=== PATIENT | male | born 1940 | race Hispanic/Latino ===

== ENCOUNTER 2016-08-31 13:59 | Inpatient (IN) | payer MEDICARE ==
[2016-08-31 14:12] VITALS: BMI 21.4
--- NOTE | 2016-08-31 15:24 | C.PDOC ---
History Of Present Illness 76 y/o male sent to ED by moose hunter Elvi for admission to [facility]'s service for diabetic left foot ulcer. Pt denies recent fever or trauma. No other complaints. Chief Complaint (Nursing): Abnormal Skin Integrity History Per: Patient History/Exam Limitations: no limitations Onset/Duration Of Symptoms: Days Current Symptoms Are (Timing): Still Present Severity: Moderate Recent travel outside of the [place]: No Past Medical History Reviewed: Historical Data, Nursing Documentation, Vital Signs Vital Signs: Last Vital Signs Temp 98.8 F 09/02/16 23:38 Pulse 81 09/02/16 23:38 Resp 20 09/02/16 23:38 BP 119/61 09/02/16 23:38 Pulse Ox 97 09/02/16 23:38 - Medical History PMH: Alzheimer's Disease, Atrial Fibrillation, Cardia Arrhythmia (A.FIB), Dementia, Depression, Diabetes, HTN, Hypothyroidism, Pneumonia (2011) Surgical History: Cholecystectomy, Coronary Stent - [facility] Procedures DEBRID OPN FX-FINGER (11/10/00) DETACHMENT AT LEFT 2ND TOE, COMPLETE, OPEN APPROACH (01/13/16) DILATE OF L PERONEAL ART WITH DRUG-ELUT INTRA, PERC APPROACH (01/07/16) DILATION OF L FEM ART USING DRUG BLLN, PERC APPROACH (01/07/16) DILATION OF L POPL ART USING DRUG BLLN, PERC APPROACH (01/07/16) EXTIRPATION OF MATTER FROM L FEM ART, BIFURC, PERC APPROACH (01/07/16) EXTIRPATION OF MATTER FROM L PERONEAL ART, PERC APPROACH (01/07/16) EXTIRPATION OF MATTER FROM L POPL ART, PERC APPROACH (01/07/16) NAIL REMOVAL (11/10/00) OPEN RED-INT FIX FINGER (11/10/00) OTHER SKIN & SUBQ I D (11/10/00) TETANUS TOXOID ADMINIST (11/09/00) Family History: States: Unknown Family Hx - Social History Hx Alcohol Use: No Hx Substance Use: No - Immunization History Hx Tetanus Toxoid Vaccination: No Hx Influenza Vaccination: No Hx Pneumococcal Vaccination: No Review Of Systems Except As Marked, All Systems Reviewed And Found Negative. Constitutional: Negative for: Fever, Chills Musculoskeletal: Positive for: Other (left foot ulcer) Physical Exam - Physical Exam Appears: Non-toxic, No Acute Distress Skin: Warm, Dry, No Rash Head: Atraumatic, Normacephalic Chest: Symmetrical Cardiovascular: Rhythm Regular, No Murmur Respiratory: Normal Breath Sounds, No Rales, No Rhonchi, No Wheezing Gastrointestinal/Abdominal: Normal Exam, Soft, No Tenderness Extremity: Normal ROM, No Deformity, Other (Left foot: new bandage applied (by Dr Boles) WELFARE ELIGIBILITY WORKER, (+) edema and swelling, (+) erythema. Amputation noted to left toe. Minimal left posterior tibial pulse.) Neurological/Psych: Oriented x3, Normal Speech ED Course And Treatment - Laboratory Results Result Diagrams: 09/02/16 07:41 09/02/16 07:41 O2 Sat by Pulse Oximetry: 97 (room air) Pulse Ox Interpretation: Normal Progress Note: SPoke to Dr Soto, will admit to his service, consults put in, abx to be started by medicine team. Medical Decision Making Medical Decision Making: Plan: * labs * XR left foot * consults Disposition - Disposition Disposition: HOSPITALIZED Disposition Time: 15:00 Condition: STABLE - Clinical Impression Clinical Impression: Foot ulcer - Scribe Statement The provider has reviewed the documentation as recorded by the Dave Whittaker Provider Attestation: All medical record entries made by the Dave were at my direction and personally dictated by me. I have reviewed the chart and agree that the record accurately reflects my personal performance of the history, physical exam, medical decision making, and the department course for this patient. I have also personally directed, reviewed, and agree with the discharge instructions and disposition.
[2016-08-31 15:39] LABS: BASO # 0.1 K/uL (0.0-0.2); BASO % 0.7 % (0.0-2.0); EOS # 0.2 K/uL (0.0-0.7); EOS % 2.2 % (0.0-4.0); HEMATOCRIT 39.2 % (35.0-51.0); LYMPH # 1.5 K/uL (1.0-4.3); MEAN CELL VOLUME 86.8 fL (80.0-94.0); MEAN CORPUSCULAR HEMOGLOBIN 27.7 pg (27.0-31.0); MONO # 1.4 K/uL (0.0-0.8); MONO % 15.3 % (0.0-10.0); NRBC % 0.1 % (0.0-2.0); RED CELL DISTRIBUTION WIDTH 14.1 % (11.5-14.5); WHITE BLOOD COUNT 8.9 K/uL (4.8-10.8)
[2016-08-31 16:00] LABS: CHLORIDE 100 mmol/L (98-107); POTASSIUM 3.8 mmol/L (3.6-5.2); SODIUM 137 mmol/L (132-148)
[2016-08-31 16:02] LABS: BILIRUBIN,TOTAL 1.1 mg/dL (0.2-1.3); GFR AFRICAN-AMERICAN > 60
[2016-08-31 16:03] LABS: ALB/GLOB RATIO 0.9 (1.0-2.1); ALKALINE PHOSPHATASE 75 U/L (38-126); ALT/SGPT 25 U/L (21-72); AST/SGOT 31 U/L (17-59); BLOOD UREA NITROGEN 23 mg/dL (9-20); CARBON DIOXIDE 25 mmol/L (22-30); GLUCOSE,RANDOM 157 mg/dL (75-110); TOTAL PROTEIN 8.2 g/dL (6.3-8.3)
[2016-08-31 16:04] LABS: CALCIUM 9.3 mg/dl (8.6-10.4)
[2016-08-31 16:21] LABS: T4 9.83 ug/dL (5.5-11.0)
[2016-08-31 16:34] LABS: THYROID STIMULATING HORMONE < 0.02 mIU/L (0.46-4.68)
[2016-08-31] MEDS ORDERED: Iodixanol 320 mg/ml 150 ml Bottle IV ONE (16:52)
--- NOTE | 2016-08-31 16:52 | RAD ---
PROCEDURE: Left Foot Radiographs. HISTORY: r/o osteo COMPARISON: Left foot radiographs performed 01/17/16 and 01/17/16 FINDINGS: BONES: Status post amputation of the 2nd phalanx. The remainder the visualized osseous structures appear intact. Hallux valgus deformity. JOINTS: No dislocation. SOFT TISSUES: Soft tissue swelling. Evidence of subcutaneous emphysema, dorsal soft tissues. No evidence of radiopaque foreign body. OTHER FINDINGS: None. IMPRESSION: Soft tissue swelling. Evidence of subcutaneous emphysema, dorsal soft tissues. Please note MRI without and with IV contrast is most sensitive in detection of acute osteomyelitis.
[2016-08-31] MEDS: Piperacill/Tazo 2.25gm in Dex 2.25 GM/50 ML BAG IVPB SCH ×2 (17:36→22:55)
[2016-08-31] MEDS: Sodium Chloride 0.45% 1,000 ML IV SCH (19:58)
--- NOTE | 2016-08-31 20:38 | HP ---
I received a phone call this afternoon from Dr. Boles, the slate picker, who works with Dr. Young who is away. He looked at the patient's left foot ulcer and felt it was bad needing IV antibiotics and inpatient care. He called me up and told me he is putting him in [facility] under my service an d that we need to get Dr. Baez, the vascular doctor onboard for vascular issues and make sure is not a circulation issue versus an osteomyelitis. He is pleasantly confused on a gurney with pre sent. He is a 76-year-old male with past medical history of Alzheimer disease, atrial fibrillation, dementia, depression, diabetes, hypertension, hypothyroid and pneumonia in the past. He has had a ch olecystectomy, coronary stents, debridement of open finger fracture, detached left second toe complet e, dilatation of left peroneal artery with drug-eluting stent, dilatation of left artery using drug-e luting approach. He has had multiple procedures of the legs, nail removal, open reduction of a finge r. SOCIAL HISTORY: No smoking, no alcohol, no drugs. FAMILY HISTORY: Hypertension and diabetes in the family. ALLERGIES: He has no known drug allergies. REVIEW OF SYSTEMS: He is pleasantly confused, seen with the . No acute vision changes or hearin g changes, no sore throat. No neck pain, no heart pain, no chest pain. No lung issues. No bleeding issues. No coughing or congestion. No abdominal pain, no nausea, vomiting, constipation, diarrhea. The left foot is swollen, red and inflamed with an ulcer. PHYSICAL EXAMINATION: VITAL SIGNS: He has 98.7 temp, 84 pulse, 114/61 blood pressure, 20 respiratory rate, 97% O2 sat on r oom air. GENERAL: He is alert, pleasantly confused, seen with the who is in charge of him. He is nontox ic, no acute distress. HEENT: Head is atraumatic, normocephalic. Throat is moist. NECK: Supple. Thyroid midline. No palpable lymphadenopathy. HEART: Regular rate. LUNGS: Decreased breath sounds but clear to auscultation. No rales, rhonchi or wheezing. ABDOMEN: Soft, nontender, positive bowel sounds. EXTREMITIES: The left foot is mildly swollen, it is reddened. He has an ulcer that looks infected. He has an amputation of the left toe. NEUROLOGIC: Alert and oriented x 2. Normal speech. From what I understand he failed outpatient therapy with the slate picker and now he is here for IV ant ibiotics. LABORATORY DATA: He has a 137 sodium, potassium 3.8, BUN 23, creatinine 1, GFR is greater than 60, s ugar is 157, calcium 9.3, total bili is 1.1, AST is 31, ALT is 25, alkaline phosphatase 75, total pro tein is 8.2, albumin is 3.8, globulin 4.3, free T4 is 1.8, T3 is 1.03 and TSH is 0.02. He is on Synt hroid and I will hold it and he has to go on a decreasing dose. White count 8.9, hemoglobin 12.5, he matocrit 39.2, platelets of 14.1. There is an angiogram and iliofemoral runoff pending. Blood cultu res pending. X-ray of the foot pending. He will be on IV fluids, Aricept, Desyrel IV coverage. He cannot have his metformin due to the proce dure of an angiogram he is going to do. He is on Zosyn right now waiting for infectious disease to c ome in, Plavix, Pradaxa. There will be podiatry and vascular consult. He has a left foot ulcer, nadine led outpatient treatment, possible vascular versus bone infection. He has an 8.9 white count, 12.5 h emoglobin, 39.2 hematocrit with 267 platelets. Hopefully, he will do well. We will check his labs tomorrow. Check TSH tomorrow, IV antibiotics, IV fluids and consults. Is here for a left foot ulcer, failed outpatient. Mingo Soto DO cc: [id number] TT: 08/31/2016 20:37:17 carlos a
--- NOTE | 2016-08-31 20:54 | CP.PCM.CON ---
History of Present Illness - History of Present Illness History of Present Illness: Surgery: Dr. Baez CC: Pt is a 76M w. hx of dementia and unreliable historian. History was gathered from review of charts. Pt has pmh of afib, htn, DM, hypothyroid, dementia, PVD, and R side popliteal aneurysm. Pt presented to ED today after having L foot ulcer evaluated by pot sander, Dr. Boles, in office, where he felt it would benefit from IV abx and inpatient management. PMH: afib, htn, DM, hypothyroid, dementia, PVD, popliteal aneurysm PSH: angiogram LLE, cataracts, cholecystectomy, cardiac cath Meds: MAR reviewed NKDA Social: No EOTH, tobacco, or drugs Fhx: non-contributory Review of Systems - Review of Systems All systems: reviewed and no additional remarkable complaints except (HPI) Past Patient History - Infectious Disease Hx of Infectious Diseases: None - Past Medical History & Family History Past Medical History?: Yes - Past Social History Smoking Status: Former Smoker - CARDIAC Hx Atrial Fibrillation: Yes Hx Cardia Arrhythmia: Yes (A.FIB) Hx Hypertension: Yes - PULMONARY Hx Pneumonia: Yes (2011) - NEUROLOGICAL Hx Alzheimer's Disease: Yes Hx Dementia: Yes - HEENT Hx HEENT Problems: Yes Hx Cataracts: Yes (BILAT. IOL) - RENAL Hx Chronic Kidney Disease: No - ENDOCRINE/METABOLIC Hx Hypothyroidism: Yes - HEMATOLOGICAL/ONCOLOGICAL Hx Blood Disorders: No - INTEGUMENTARY Hx Dermatological Problems: Yes (BREAKDOWN LEFT SIDE OF FOOT NEAR ANKLE) - MUSCULOSKELETAL/RHEUMATOLOGICAL Hx Musculoskeletal Disorders: No Hx Falls: No - GASTROINTESTINAL Hx Gastrointestinal Disorders: No - GENITOURINARY/GYNECOLOGICAL Hx Genitourinary Disorders: No - PSYCHIATRIC Hx Depression: Yes Hx Substance Use: No - SURGICAL HISTORY Hx Cholecystectomy: Yes Hx Coronary Stent: Yes - ANESTHESIA Hx Anesthesia: Yes Hx Anesthesia Reactions: No Hx Malignant Hyperthermia: No Meds Allergies/Adverse Reactions: Allergies Allergy/AdvReac Type Severity Reaction Status Date / Time No Known Allergies Allergy Verified 08/31/16 14:11 - Medications Medications: Current Medications Dabigatran (Pradaxa) 150 mg PO DAILY [facility] Donepezil HCl (Aricept) 5 mg PO HS [facility] Piperacillin Sod/Tazobactam Sod (Zosyn 2.25 Gm Iv Premix) 2.25 gm in 50 mls @ 100 mls/hr IVPB Q6H [facility] Last Admin: 08/31/16 17:36 Dose: 100 mls/hr Sodium Chloride (Sodium Chloride 0.45%) 1,000 mls @ 40 mls/hr IV .Q24H [facility] Last Admin: 08/31/16 19:58 Dose: 40 mls/hr Insulin Human Regular (Novolin R) 0 unit SC ACHS [facility] PRN Reason: Protocol Trazodone HCl (Desyrel) 50 mg PO HS [facility] Physical Exam - Constitutional Appears: Non-toxic, No Acute Distress, Confused - Head Exam Head Exam: ATRAUMATIC, NORMOCEPHALIC - Eye Exam Eye Exam: EOMI. absent: Scleral icterus - ENT Exam ENT Exam: Mucous Membranes Moist, Normal External Ear Exam - Neck Exam Neck exam: Positive for: Full Rom - Respiratory Exam Respiratory Exam: NORMAL BREATHING PATTERN. absent: Accessory Muscle Use, Respiratory Distress - GI/Abdominal Exam GI & Abdominal Exam: Soft. absent: Tenderness - Extremities Exam Additional comments: LLE: ~1x1cm ulcer on medial portion of big toe at MTPJ, no drainage noted. + erythema extending over dorsum of foot. Warm to touch. Non-tender. Sesnation and motor fxn intact. DP palpable. Results - Vital Signs Recent Vital Signs: Last Vital Signs Temp 97.5 F L 08/31/16 19:44 Pulse 60 08/31/16 19:44 Resp 17 08/31/16 19:44 BP 129/67 08/31/16 19:44 Pulse Ox 97 08/31/16 19:44 - Labs Result Diagrams: 08/31/16 15:30 08/31/16 15:30 Labs: Laboratory Results - last 24 hr 08/31/16 08/31/16 08/31/16 15:30 15:30 15:30 WBC 8.9 RBC 4.52 Hgb 12.5 Hct 39.2 MCV 86.8 MCH 27.7 MCHC 32.0 L RDW 14.1 Plt Count 267 MPV 8.0 Neut % (Auto) 64.8 Lymph % (Auto) 17.0 L Shelby % (Auto) 15.3 H Eos % (Auto) 2.2 Baso % (Auto) 0.7 Neut # 5.8 Lymph # 1.5 Shelby # 1.4 H Eos # 0.2 Baso # 0.1 Sodium 137 Potassium 3.8 Chloride 100 Carbon Dioxide 25 Anion Gap 16 BUN 23 H Creatinine 1.0 Est GFR ( Amer) > 60 Est GFR (Non-Af Amer) > 60 Random Glucose 157 H Calcium 9.3 Total Bilirubin 1.1 AST 31 ALT 25 Alkaline Phosphatase 75 Total Protein 8.2 Albumin 3.8 Globulin 4.3 H Albumin/Globulin Ratio 0.9 L Free T4 1.80 Thyroxine (T4) 9.83 Total T3 1.03 L TSH 3rd Generation < 0.02 L Assessment & Plan - Assessment and Plan (Free Text) Assessment: 76M w. L foot ulcer -f/u results of CTA -c/w abx -d/w attending Giancarlo PGY2
[2016-08-31] MEDS: (Novolin R) Insulin Human Regular 100 units/ml vial SC SCH (22:55)
[2016-09-01] MEDS: Piperacill/Tazo 2.25gm in Dex 2.25 GM/50 ML BAG IVPB SCH ×4 (05:25→22:31)
[2016-09-01 06:31] LABS: BASO % 0.4 % (0.0-2.0); EOS # 0.2 K/uL (0.0-0.7); HEMATOCRIT 33.1 % (35.0-51.0); LYMPH # 1.8 K/uL (1.0-4.3); LYMPH % 16.2 % (20.0-40.0); MEAN CELL VOLUME 85.7 fL (80.0-94.0); MEAN CORPUSCULAR HEMOGLOBIN 28.1 pg (27.0-31.0); MEAN CORPUSCULAR HGB CONC 32.8 g/dL (33.0-37.0); MEAN PLATELET VOLUME 7.6 fL (7.2-11.7); MONO # 1.5 K/uL (0.0-0.8); MONO % 13.4 % (0.0-10.0); RED CELL DISTRIBUTION WIDTH 14.1 % (11.5-14.5); WHITE BLOOD COUNT 11.2 K/uL (4.8-10.8)
[2016-09-01 06:54] LABS: CHLORIDE 100 mmol/L (98-107); POTASSIUM 3.7 mmol/L (3.6-5.2); SODIUM 134 mmol/L (132-148)
[2016-09-01 06:56] LABS: GFR AFRICAN-AMERICAN > 60
[2016-09-01 06:57] LABS: ALB/GLOB RATIO 0.8 (1.0-2.1); ALKALINE PHOSPHATASE 64 U/L (38-126); ALT/SGPT 24 U/L (21-72); AST/SGOT 22 U/L (17-59); BILIRUBIN,TOTAL 1.4 mg/dL (0.2-1.3); BLOOD UREA NITROGEN 19 mg/dL (9-20); CARBON DIOXIDE 24 mmol/L (22-30); GLUCOSE,RANDOM 147 mg/dL (75-110); TOTAL PROTEIN 6.5 g/dL (6.3-8.3)
[2016-09-01 06:58] LABS: CALCIUM 8.4 mg/dl (8.6-10.4)
[2016-09-01 07:16] LABS: THYROID STIMULATING HORMONE < 0.02 mIU/L (0.46-4.68)
[2016-09-01] MEDS: (Novolin R) Insulin Human Regular 100 units/ml vial SC SCH ×4 (08:16→21:38)
[2016-09-01 08:25] VITALS: RESP 20
[2016-09-01] MEDS: Enoxaparin 40 mg Syringe SC SCH (10:27)
--- NOTE | 2016-09-01 10:47 | CP.PCM.CON ---
History of Present Illness - History of Present Illness History of Present Illness: 76 y/o male sent to ED by chemical plant manager Elvi for admission to [facility]'s service for diabetic left foot ulcer. Pt denies recent fever or trauma. No other complaints. IV rx started empirically vascular work up cultures MRI bone scan pending hx of dementia and unreliable historian. History was gathered from review of charts. Pt has pmh of afib, htn, DM, hypothyroid, dementia, PVD, and R side popliteal aneurysm. Pt presented to ED today after having L foot ulcer evaluated by chemical plant manager, Dr. Boles, in office, where he felt it would benefit from IV abx and inpatient management. PMH: afib, htn, DM, hypothyroid, dementia, PVD, popliteal aneurysm PSH: angiogram LLE, cataracts, cholecystectomy, cardiac cath Meds: MAR reviewed NKDA Social: No EOTH, tobacco, or drugs Fhx: non-contributory - Medical History PMH: Alzheimer's Disease, Atrial Fibrillation, Cardia Arrhythmia (A.FIB), Dementia, Depression, Diabetes, HTN, Hypothyroidism, Pneumonia (2011) Surgical History: Cholecystectomy, Coronary Stent Review of Systems - Review of Systems Systems not reviewed;Unavailable: Altered Mental Status - Constitutional Constitutional: absent: As Per HPI, Anorexia, Chills, Daytime Sleepiness, Excessive Sweating, Fatigue, Fever, Frequent Falls, Headache, Increased Appetite , Lethargy, Malaise, Night Sweats, Snoring, Sleep Apnea, Weight Gain, Weight Loss, Weakness, Other - EENT Eyes: absent: As Per HPI, Blind Spots, Blurred Vision, Change in Vision, Decreased Night Vision, Diplopia, Discharge, Dry Eye, Exophthalmos, Floaters, Irritation, Itchy Eyes, Loss of Peripheral Vision, Pain, Photophobia, Requires Corrective Lenses, Sees Flashes, Spots in Vision, Tunnel Vision, Other Visual Disturbances, Loss of Vision, Other Ears: absent: As Per HPI, Decreased Hearing, Ear Discharge, Ear Pain, Tinnitus, Abnormal Hearing, Disequilibrium, Dizziness, Other Nose/Mouth/Throat: absent: As Per HPI, Epistaxis, Nasal Congestion, Nasal Discharge, Nasal Obstruction, Nasal Trauma, Nose Pain, Post Nasal Drip, Sinus Pain, Sinus Pressure, Bleeding Gums, Change in Voice, Dental Pain, Dry Mouth, Dysphagia, Halitosis, Hoarsness, Lip Swelling, Mouth Lesions, Mouth Pain, Odynophagia, Sore Throat, Throat Swelling, Tongue Swelling, Facial Pain, Neck Pain, Neck Mass, Other - Respiratory Respiratory: absent: As Per HPI, Cough, Dyspnea, Hemoptysis, Dyspnea on Exertion , Wheezing, Snoring, Stridor, Pain on Inspiration, Chest Congestion, Excessive Mucous Production, Change in Mucous Color, Pain with Coughing, Other - Gastrointestinal Gastrointestinal: absent: As Per HPI, Abdominal Pain, Belching, Bloating, Change in Bowel Habits, Change in Stool Character, Coffee Ground Emesis, Constipation, Cramping, Diarrhea, Dyspepsia, Dysphagia, Early Satiety, Excessive Flatus, Fecal Incontinence, Heartburn, Hematemesis, Hematochezia, Loose Stools, Melena, Nausea, Odynophagia, Temesmus, Vomiting, Other - Genitourinary Genitourinary: absent: As Per HPI, Change in Urinary Stream, Difficulty Urinating, Dysuria, Flank Pain, Hematuria, Pyuria, Nocturia, Urinary Incontinence, Urinary Frequency, Urinary Hesitance, Urinary Urgency, Voiding Freq/Small Amts, Freq UTI, Hx Renal/Bladder Calculi, Hx /Renal Surgery, Bladder Distension, Other - Musculoskeletal Musculoskeletal: absent: As Per HPI, Abnormal Gait, Arthralgias, Atrophy, Back Pain, Deformity, Joint Swelling, Limited Range of Motion, Loss of Height, Muscle Cramps, Muscle Weakness, Myalgias, Neck Pain, Numbness, Radiating Pain into Limb, Stiffness, Tingling, Other - Integumentary Integumentary: As Per HPI - Psychiatric Psychiatric: absent: As Per HPI, Abnormal Sleep Pattern, Anhedonia, Anxiety, Auditory Hallucinations, Behavioral Changes, Change in Appetite, Change in Libido, Confusion, Depression, Difficulty Concentrating, Hallucinations, Homicidal Ideation, Hopelessness, Irritability, Memory Loss, Mood Swings, Panic Attacks, Paranoia, Suicidal Ideation, Visual Hallucinations, Tactile Hallucinations, Other - Endocrine Endocrine: As Per HPI. absent: Change in Body Appearance, Change in Libido, Cold Intolorance, Deepening of Voice, Excessive Sweating, Fatigue, Flushing, Heat Intolorance, Increase in Ring/Shoe/Hat Size, Palpitations, Polydipsia, Polyphagia, Polyuria, Other - Hematologic/Lymphatic Hematologic: absent: As Per HPI, Easy Bleeding, Easy Bruising, Lymphadenopathy, Other Past Patient History - Infectious Disease Hx of Infectious Diseases: None - Past Medical History & Family History Past Medical History?: Yes - Past Social History Smoking Status: Former Smoker - CARDIAC Hx Atrial Fibrillation: Yes Hx Cardia Arrhythmia: Yes (A.FIB) Hx Hypertension: Yes - PULMONARY Hx Pneumonia: Yes (2011) - NEUROLOGICAL Hx Alzheimer's Disease: Yes Hx Dementia: Yes - HEENT Hx HEENT Problems: Yes Hx Cataracts: Yes (BILAT. IOL) - RENAL Hx Chronic Kidney Disease: No - ENDOCRINE/METABOLIC Hx Hypothyroidism: Yes - HEMATOLOGICAL/ONCOLOGICAL Hx Blood Disorders: No - INTEGUMENTARY Hx Dermatological Problems: Yes (BREAKDOWN LEFT SIDE OF FOOT NEAR ANKLE) - MUSCULOSKELETAL/RHEUMATOLOGICAL Hx Musculoskeletal Disorders: No Hx Falls: No - GASTROINTESTINAL Hx Gastrointestinal Disorders: No - GENITOURINARY/GYNECOLOGICAL Hx Genitourinary Disorders: No - PSYCHIATRIC Hx Depression: Yes Hx Substance Use: No - SURGICAL HISTORY Hx Cholecystectomy: Yes Hx Coronary Stent: Yes - ANESTHESIA Hx Anesthesia: Yes Hx Anesthesia Reactions: No Hx Malignant Hyperthermia: No Meds Allergies/Adverse Reactions: Allergies Allergy/AdvReac Type Severity Reaction Status Date / Time No Known Allergies Allergy Verified 08/31/16 14:11 - Medications Medications: Current Medications Dabigatran (Pradaxa) 150 mg PO DAILY [facility] Last Admin: 09/01/16 10:28 Dose: 150 mg Donepezil HCl (Aricept) 5 mg PO HS [facility] Last Admin: 08/31/16 22:54 Dose: 5 mg Enoxaparin Sodium (Lovenox) 40 mg SC DAILY [facility] Last Admin: 09/01/16 10:27 Dose: 40 mg Piperacillin Sod/Tazobactam Sod (Zosyn 2.25 Gm Iv Premix) 2.25 gm in 50 mls @ 100 mls/hr IVPB Q6H [facility] Last Admin: 09/01/16 05:25 Dose: 100 mls/hr Sodium Chloride (Sodium Chloride 0.45%) 1,000 mls @ 40 mls/hr IV .Q24H [facility] Last Admin: 08/31/16 19:58 Dose: 40 mls/hr Insulin Human Regular (Novolin R) 0 unit SC [facility] PRN Reason: Protocol Last Admin: 09/01/16 08:16 Dose: Not Given Pneumococcal Polyvalent Vaccine (Pneumovax 23 Vaccine) 0.5 ml IM .ONCE ONE Stop: 09/02/16 10:01 Trazodone HCl (Desyrel) 50 mg PO HS [facility] Last Admin: 08/31/16 22:54 Dose: 50 mg Physical Exam - Constitutional Appears: Non-toxic, Chronically Ill - Head Exam Head Exam: NORMOCEPHALIC - Eye Exam Eye Exam: PERRL. absent: Scleral icterus - ENT Exam ENT Exam: Mucous Membranes Dry, Normal External Ear Exam - Respiratory Exam Respiratory Exam: absent: Accessory Muscle Use - Cardiovascular Exam Cardiovascular Exam: REGULAR RHYTHM, +S1, +S2 - GI/Abdominal Exam GI & Abdominal Exam: Diminished Bowel Sounds, Soft. absent: Tenderness - Rectal Exam Rectal Exam: Deferred - Exam Exam: NORMAL INSPECTION - Extremities Exam Extremities exam: Positive for: tenderness. Negative for: calf tenderness, pedal edema, pedal pulses present Additional comments: + foot ulcer - Back Exam Back exam: absent: CVA tenderness (L), CVA tenderness (R) - Neurological Exam Neurological exam: Alert, CN II-XII Intact, Oriented x3, Reflexes Normal - Psychiatric Exam Psychiatric exam: Normal Mood - Skin Skin Exam: Dry Results - Vital Signs Recent Vital Signs: Last Vital Signs Temp 98.7 F 09/01/16 08:00 Pulse 72 09/01/16 08:00 Resp 20 09/01/16 08:00 BP 120/66 09/01/16 08:00 Pulse Ox 97 09/01/16 08:00 - Labs Result Diagrams: 09/02/16 07:41 09/02/16 07:41 Labs: Laboratory Results - last 24 hr 08/31/16 08/31/16 08/31/16 15:30 15:30 15:30 WBC 8.9 RBC 4.52 Hgb 12.5 Hct 39.2 MCV 86.8 MCH 27.7 MCHC 32.0 L RDW 14.1 Plt Count 267 MPV 8.0 Neut % (Auto) 64.8 Lymph % (Auto) 17.0 L Burke % (Auto) 15.3 H Eos % (Auto) 2.2 Baso % (Auto) 0.7 Neut # 5.8 Lymph # 1.5 Burke # 1.4 H Eos # 0.2 Baso # 0.1 Sodium 137 Potassium 3.8 Chloride 100 Carbon Dioxide 25 Anion Gap 16 BUN 23 H Creatinine 1.0 Est GFR ( Amer) > 60 Est GFR (Non-Af Amer) > 60 POC Glucose (mg/dL) Random Glucose 157 H Calcium 9.3 Total Bilirubin 1.1 AST 31 ALT 25 Alkaline Phosphatase 75 Total Protein 8.2 Albumin 3.8 Globulin 4.3 H Albumin/Globulin Ratio 0.9 L Free T4 1.80 Thyroxine (T4) 9.83 Total T3 1.03 L TSH 3rd Generation < 0.02 L 08/31/16 09/01/16 09/01/16 21:38 06:16 06:16 WBC 11.2 H RBC 3.86 L Hgb 10.8 L Hct 33.1 L MCV 85.7 MCH 28.1 MCHC 32.8 L RDW 14.1 Plt Count 214 MPV 7.6 Neut % (Auto) 68.0 Lymph % (Auto) 16.2 L Burke % (Auto) 13.4 H Eos % (Auto) 2.0 Baso % (Auto) 0.4 Neut # 7.6 H Lymph # 1.8 Burke # 1.5 H Eos # 0.2 Baso # 0.0 Sodium 134 Potassium 3.7 Chloride 100 Carbon Dioxide 24 Anion Gap 14 BUN 19 Creatinine 1.0 Est GFR ( Amer) > 60 Est GFR (Non-Af Amer) > 60 POC Glucose (mg/dL) 132 H Random Glucose 147 H Calcium 8.4 L Total Bilirubin 1.4 H AST 22 ALT 24 Alkaline Phosphatase 64 Total Protein 6.5 Albumin 3.0 L D Globulin 3.6 Albumin/Globulin Ratio 0.8 L Free T4 Thyroxine (T4) Total T3 TSH 3rd Generation < 0.02 L 09/01/16 07:09 WBC RBC Hgb Hct MCV MCH MCHC RDW Plt Count MPV Neut % (Auto) Lymph % (Auto) Burke % (Auto) Eos % (Auto) Baso % (Auto) Neut # Lymph # Burke # Eos # Baso # Sodium Potassium Chloride Carbon Dioxide Anion Gap BUN Creatinine Est GFR ( Amer) Est GFR (Non-Af Amer) POC Glucose (mg/dL) 145 H Random Glucose Calcium Total Bilirubin AST ALT Alkaline Phosphatase Total Protein Albumin Globulin Albumin/Globulin Ratio Free T4 Thyroxine (T4) Total T3 TSH 3rd Generation Assessment & Plan (1) Arterial insufficiency of lower extremity Status: Acute (2) Cellulitis Status: Acute (3) Change in mental status Status: Acute (4) Dementia Status: Acute (5) Gangrenous toe Status: Acute (6) Peripheral vascular disease Status: Acute (7) TIA (transient ischemic attack) Status: Acute - Assessment and Plan (Free Text) Assessment: await vascular eval check mri cont iv rx podiatry follow up
--- NOTE | 2016-09-01 11:23 | CP.PCM.CON ---
<Richard Hernández Y - Last Filed: 09/01/16 11:20> History of Present Illness - History of Present Illness History of Present Illness: 76 y/o male patient with PMHx of Alzheimer's Disease, Atrial Fibrillation, Cardia Arrhythmia (A.FIB), Dementia, Depression, Diabetes, HTN, Hypothyroidism, Pneumonia (2011) seen and evaluated at bedside with Dr. Boles after request for podiatry consult. Patient was sent to [facility] yesterday by his staging technician Dr. Boles due to left foot cellulitis. Patient denies any pedal pain at this time. PMH: afib, htn, DM, hypothyroid, dementia, PVD, popliteal aneurysm PSH: angiogram LLE, cataracts, cholecystectomy, cardiac cath Meds: MAR reviewed NKDA Social: No EOTH, tobacco, or drugs Fhx: non-contributory Past Patient History - Infectious Disease Hx of Infectious Diseases: None - Past Medical History & Family History Past Medical History?: Yes - Past Social History Smoking Status: Former Smoker - CARDIAC Hx Atrial Fibrillation: Yes Hx Cardia Arrhythmia: Yes (A.FIB) Hx Hypertension: Yes - PULMONARY Hx Pneumonia: Yes (2011) - NEUROLOGICAL Hx Alzheimer's Disease: Yes Hx Dementia: Yes - HEENT Hx HEENT Problems: Yes Hx Cataracts: Yes (BILAT. IOL) - RENAL Hx Chronic Kidney Disease: No - ENDOCRINE/METABOLIC Hx Hypothyroidism: Yes - HEMATOLOGICAL/ONCOLOGICAL Hx Blood Disorders: No - INTEGUMENTARY Hx Dermatological Problems: Yes (BREAKDOWN LEFT SIDE OF FOOT NEAR ANKLE) - MUSCULOSKELETAL/RHEUMATOLOGICAL Hx Musculoskeletal Disorders: No Hx Falls: No - GASTROINTESTINAL Hx Gastrointestinal Disorders: No - GENITOURINARY/GYNECOLOGICAL Hx Genitourinary Disorders: No - PSYCHIATRIC Hx Depression: Yes Hx Substance Use: No - SURGICAL HISTORY Hx Cholecystectomy: Yes Hx Coronary Stent: Yes - ANESTHESIA Hx Anesthesia: Yes Hx Anesthesia Reactions: No Hx Malignant Hyperthermia: No Meds Allergies/Adverse Reactions: Allergies Allergy/AdvReac Type Severity Reaction Status Date / Time No Known Allergies Allergy Verified 08/31/16 14:11 - Medications Medications: Current Medications Dabigatran (Pradaxa) 150 mg PO DAILY [facility] Last Admin: 09/01/16 10:28 Dose: 150 mg Donepezil HCl (Aricept) 5 mg PO HS [facility] Last Admin: 08/31/16 22:54 Dose: 5 mg Enoxaparin Sodium (Lovenox) 40 mg SC DAILY [facility] Last Admin: 09/01/16 10:27 Dose: 40 mg Piperacillin Sod/Tazobactam Sod (Zosyn 2.25 Gm Iv Premix) 2.25 gm in 50 mls @ 100 mls/hr IVPB Q6H [facility] Last Admin: 09/01/16 05:25 Dose: 100 mls/hr Sodium Chloride (Sodium Chloride 0.45%) 1,000 mls @ 40 mls/hr IV .Q24H [facility] Last Admin: 08/31/16 19:58 Dose: 40 mls/hr Insulin Human Regular (Novolin R) 0 unit SC ACHS [facility] PRN Reason: Protocol Last Admin: 09/01/16 08:16 Dose: Not Given Pneumococcal Polyvalent Vaccine (Pneumovax 23 Vaccine) 0.5 ml IM .ONCE ONE Stop: 09/02/16 10:01 Trazodone HCl (Desyrel) 50 mg PO HS [facility] Last Admin: 08/31/16 22:54 Dose: 50 mg Physical Exam - Constitutional Appears: Well, Non-toxic, No Acute Distress - Extremities Exam Additional comments: Vascular: DP and PT palpable, CFT is less than 3 seconds, No pedal edema noted Derm: Small superficial open wound noted to the medial aspect of left 1st MPJ ( 2 cm x 3 cm), no drainage, no signs of infection, no erythema, no tunneling, no sinus tract, wound base is dried Ortho: No pain with palpation, history of 2nd digit amputation Neuro: Diminished Protective sensation and light touch. - Neurological Exam Neurological exam: Alert Results - Vital Signs Recent Vital Signs: Last Vital Signs Temp 98.7 F 09/01/16 08:00 Pulse 72 09/01/16 08:00 Resp 20 09/01/16 08:00 BP 120/66 09/01/16 08:00 Pulse Ox 97 09/01/16 08:00 - Labs Result Diagrams: 09/01/16 06:16 09/01/16 06:16 Labs: Laboratory Results - last 24 hr 08/31/16 08/31/16 08/31/16 15:30 15:30 15:30 WBC 8.9 RBC 4.52 Hgb 12.5 Hct 39.2 MCV 86.8 MCH 27.7 MCHC 32.0 L RDW 14.1 Plt Count 267 MPV 8.0 Neut % (Auto) 64.8 Lymph % (Auto) 17.0 L [place] % (Auto) 15.3 H Eos % (Auto) 2.2 Baso % (Auto) 0.7 Neut # 5.8 Lymph # 1.5 [place] # 1.4 H Eos # 0.2 Baso # 0.1 Sodium 137 Potassium 3.8 Chloride 100 Carbon Dioxide 25 Anion Gap 16 BUN 23 H Creatinine 1.0 Est GFR ( Amer) > 60 Est GFR (Non-Af Amer) > 60 POC Glucose (mg/dL) Random Glucose 157 H Calcium 9.3 Total Bilirubin 1.1 AST 31 ALT 25 Alkaline Phosphatase 75 Total Protein 8.2 Albumin 3.8 Globulin 4.3 H Albumin/Globulin Ratio 0.9 L Free T4 1.80 Thyroxine (T4) 9.83 Total T3 1.03 L TSH 3rd Generation < 0.02 L 08/31/16 09/01/16 09/01/16 21:38 06:16 06:16 WBC 11.2 H RBC 3.86 L Hgb 10.8 L Hct 33.1 L MCV 85.7 MCH 28.1 MCHC 32.8 L RDW 14.1 Plt Count 214 MPV 7.6 Neut % (Auto) 68.0 Lymph % (Auto) 16.2 L [place] % (Auto) 13.4 H Eos % (Auto) 2.0 Baso % (Auto) 0.4 Neut # 7.6 H Lymph # 1.8 [place] # 1.5 H Eos # 0.2 Baso # 0.0 Sodium 134 Potassium 3.7 Chloride 100 Carbon Dioxide 24 Anion Gap 14 BUN 19 Creatinine 1.0 Est GFR ( Amer) > 60 Est GFR (Non-Af Amer) > 60 POC Glucose (mg/dL) 132 H Random Glucose 147 H Calcium 8.4 L Total Bilirubin 1.4 H AST 22 ALT 24 Alkaline Phosphatase 64 Total Protein 6.5 Albumin 3.0 L D Globulin 3.6 Albumin/Globulin Ratio 0.8 L Free T4 Thyroxine (T4) Total T3 TSH 3rd Generation < 0.02 L 09/01/16 07:09 WBC RBC Hgb Hct MCV MCH MCHC RDW Plt Count MPV Neut % (Auto) Lymph % (Auto) [place] % (Auto) Eos % (Auto) Baso % (Auto) Neut # Lymph # [place] # Eos # Baso # Sodium Potassium Chloride Carbon Dioxide Anion Gap BUN Creatinine Est GFR ( Amer) Est GFR (Non-Af Amer) POC Glucose (mg/dL) 145 H Random Glucose Calcium Total Bilirubin AST ALT Alkaline Phosphatase Total Protein Albumin Globulin Albumin/Globulin Ratio Free T4 Thyroxine (T4) Total T3 TSH 3rd Generation Assessment & Plan - Assessment and Plan (Free Text) Assessment: 76 y/o male patient with left foot resolved cellulitis Plan: Patient seen and evaluated at bedside with Left foot cellulitis is clinically resolved Podiatry plan: Patient can be discharge home tomorrow after IV abx treatment Labs and vitals were reviewed x rays were reviewed Patient will be f/u with Dr. Boles upon D/C <Jake Boles D - Last Filed: 09/01/16 12:31> Meds - Medications Medications: Current Medications Dabigatran (Pradaxa) 150 mg PO DAILY [facility] Last Admin: 09/01/16 10:28 Dose: 150 mg Donepezil HCl (Aricept) 5 mg PO HS [facility] Last Admin: 08/31/16 22:54 Dose: 5 mg Enoxaparin Sodium (Lovenox) 40 mg SC DAILY [facility] Last Admin: 09/01/16 10:27 Dose: 40 mg Piperacillin Sod/Tazobactam Sod (Zosyn 2.25 Gm Iv Premix) 2.25 gm in 50 mls @ 100 mls/hr IVPB Q6H [facility] Last Admin: 09/01/16 05:25 Dose: 100 mls/hr Sodium Chloride (Sodium Chloride 0.45%) 1,000 mls @ 40 mls/hr IV .Q24H [facility] Last Admin: 08/31/16 19:58 Dose: 40 mls/hr Insulin Human Regular (Novolin R) 0 unit SC ACHS [facility] PRN Reason: Protocol Last Admin: 09/01/16 08:16 Dose: Not Given Trazodone HCl (Desyrel) 50 mg PO HS [facility] Last Admin: 08/31/16 22:54 Dose: 50 mg Results - Vital Signs Recent Vital Signs: Last Vital Signs Temp 98.7 F 09/01/16 08:00 Pulse 72 09/01/16 08:00 Resp 20 09/01/16 08:00 BP 120/66 09/01/16 08:00 Pulse Ox 97 09/01/16 08:00 - Labs Result Diagrams: 09/01/16 06:16 09/01/16 06:16 Labs: Laboratory Results - last 24 hr 08/31/16 08/31/16 08/31/16 15:30 15:30 15:30 WBC 8.9 RBC 4.52 Hgb 12.5 Hct 39.2 MCV 86.8 MCH 27.7 MCHC 32.0 L RDW 14.1 Plt Count 267 MPV 8.0 Neut % (Auto) 64.8 Lymph % (Auto) 17.0 L [place] % (Auto) 15.3 H Eos % (Auto) 2.2 Baso % (Auto) 0.7 Neut # 5.8 Lymph # 1.5 [place] # 1.4 H Eos # 0.2 Baso # 0.1 Sodium 137 Potassium 3.8 Chloride 100 Carbon Dioxide 25 Anion Gap 16 BUN 23 H Creatinine 1.0 Est GFR ( Amer) > 60 Est GFR (Non-Af Amer) > 60 POC Glucose (mg/dL) Random Glucose 157 H Calcium 9.3 Total Bilirubin 1.1 AST 31 ALT 25 Alkaline Phosphatase 75 Total Protein 8.2 Albumin 3.8 Globulin 4.3 H Albumin/Globulin Ratio 0.9 L Free T4 1.80 Thyroxine (T4) 9.83 Total T3 1.03 L TSH 3rd Generation < 0.02 L 08/31/16 09/01/16 09/01/16 21:38 06:16 06:16 WBC 11.2 H RBC 3.86 L Hgb 10.8 L Hct 33.1 L MCV 85.7 MCH 28.1 MCHC 32.8 L RDW 14.1 Plt Count 214 MPV 7.6 Neut % (Auto) 68.0 Lymph % (Auto) 16.2 L [place] % (Auto) 13.4 H Eos % (Auto) 2.0 Baso % (Auto) 0.4 Neut # 7.6 H Lymph # 1.8 [place] # 1.5 H Eos # 0.2 Baso # 0.0 Sodium 134 Potassium 3.7 Chloride 100 Carbon Dioxide 24 Anion Gap 14 BUN 19 Creatinine 1.0 Est GFR ( Amer) > 60 Est GFR (Non-Af Amer) > 60 POC Glucose (mg/dL) 132 H Random Glucose 147 H Calcium 8.4 L Total Bilirubin 1.4 H AST 22 ALT 24 Alkaline Phosphatase 64 Total Protein 6.5 Albumin 3.0 L D Globulin 3.6 Albumin/Globulin Ratio 0.8 L Free T4 Thyroxine (T4) Total T3 TSH 3rd Generation < 0.02 L 09/01/16 09/01/16 07:09 11:20 WBC RBC Hgb Hct MCV MCH MCHC RDW Plt Count MPV Neut % (Auto) Lymph % (Auto) [place] % (Auto) Eos % (Auto) Baso % (Auto) Neut # Lymph # [place] # Eos # Baso # Sodium Potassium Chloride Carbon Dioxide Anion Gap BUN Creatinine Est GFR ( Amer) Est GFR (Non-Af Amer) POC Glucose (mg/dL) 145 H 171 H Random Glucose Calcium Total Bilirubin AST ALT Alkaline Phosphatase Total Protein Albumin Globulin Albumin/Globulin Ratio Free T4 Thyroxine (T4) Total T3 TSH 3rd Generation Attending/Attestation - Attestation I have personally seen and examined this patient.: Yes I have fully participated in the care of the patient.: Yes I have reviewed all pertinent clinical information: Yes Notes (Text): 09/01/16 12:29 Pt seen with resident. Left foot appears to be much less swollen and erythematous. IV abx are improving the situation. CTA shows stents are patent. Pt can be D/C to home tomorrow if ok with PMD. Cont with local wound care at home. Pt can f/u in our office as outpatient.
--- NOTE | 2016-09-01 12:02 | CT ---
PROCEDURE: CT Angiography Abdomen, Pelvis and Lower Extremity with Contrast HISTORY: PAD, popliteal artery aneurysm. COMPARISON: CTA 04/10/2016 TECHNIQUE: Technique: CT angiography of the abdomen, pelvis and bilateral lower extremities performed in the arterial phase of enhancement. Coronal and sagittal reformats, and well as rotating MIP images of the vessels generated at the workstation. Intravenous contrast dose: 150 ml Visipaque Radiation dose: Total exam DLP = 1089.46 MGy-cm. FINDINGS: CT ANGIOGRAPHY: ABDOMINAL AORTA:: The abdominal was unremarkable. MAJOR AORTIC BRANCHES: Celiac [place]: Unremarkable. Superior mesenteric artery: Unremarkable. Inferior mesenteric artery: Unremarkable. Renal arteries: Unremarkable. PELVIC ARTERIES: Right Common Iliac: Mild plaque with no stenosis or aneurysm. Right External Iliac: Unremarkable. Right Internal Iliac: Unremarkable. Left Common Iliac: Mild plaque with no stenosis or aneurysm. Left External Iliac: Unremarkable. Left Internal Iliac: Unremarkable. RIGHT LOWER EXTREMITY ARTERIES: Right Common Femoral: Unremarkable. Right Superficial Femoral: Unremarkable. Right Profunda Femoris: Unremarkable. Right Popliteal:Large popliteal artery aneurysm with significant soft plaque throughout. The aneurysm measures 2.6 centimeter. Right Anterior Tibial: Occludes in the proximal segment and reconstitutes in remains patent. Right Tibioperoneal Trunk: Unremarkable. Right Posterior Tibial: Occluded. Right Peroneal: Calcific plaque proximal segment with possible moderate stenosis. Flow seen within the peroneal artery per Right dorsalis pedis : Unremarkable. LEFT LOWER EXTREMITY ARTERIES: Left Common Femoral: Unremarkable. Left Superficial Femoral: Previously stented distal SFA is patent. Left Profunda Femoris: Unremarkable. Left Popliteal: Popliteal artery stent is patent. The infrarenal popliteal artery stent however is occluded. Left Anterior Tibial: Occluded. Left Tibioperoneal Trunk: Unremarkable. Left Posterior Tibial: Occluded. There is reconstitution at the ankle. Lateral plantar is patent Left Peroneal: Fills via collateral and is otherwise Unremarkable. Left Dorsalis pedis: Patent. Fills via collaterals per NON-ANGIOGRAPHIC ASPECT OF THE EXAM: LOWER THORAX: Ground-glass changes lower lobe elected likely atelectasis. LIVER: Unremarkable. No gross lesion or ductal dilatation. GALLBLADDER AND BILE DUCTS: Cholecystectomy PANCREAS: Unremarkable. No gross lesion or ductal dilatation. SPLEEN: Unremarkable. ADRENALS: Unremarkable. No mass. KIDNEYS AND URETERS: Unremarkable. No hydronephrosis. No solid mass. STOMACH AND BOWEL: Very limited evaluation. APPENDIX: PERITONEUM: Unremarkable. No free fluid. No free air. LYMPH NODES: Unremarkable. No enlarged lymph nodes. BLADDER: Unremarkable. REPRODUCTIVE: BONES: No acute fracture. OTHER FINDINGS: None. IMPRESSION: A)CT ANGIOGRAM ABDOMEN AND PELVIS: Unremarkable CT angiogram of the abdomen pelvis. There is no aneurysm per B) RIGHT LOWER EXTREMITY CTA ANGIOGRAM: 1. Remarkable common femoral artery profunda femoral artery and superficial femoral artery. 2. Large popliteal artery aneurysm measuring 2.5 centimeters with significant thrombus. No interval change from previous study. 3. Right runoff: Patent peroneal artery. Posterior tibial artery is occluded. Anterior tibial artery occludes proximally and remains patent. C) LEFT LOWER EXTREMITY CT ANGIOGRAM: 1. Unremarkable common femoral artery profunda femoral artery. The superficial femoral artery is patent. The previously stented distal SFA is patent. 2. Popliteal artery stent extends into the tibioperoneal artery. The distal portion of the stent is occluded. 3. Peroneal artery fills via collateral and is patent. The posterior tibial is occluded the reconstitutes at the ankle. The lateral plantar is patent. The anterior tibial is occluded. There is flow in the dorsalis pedis via collaterals.
--- NOTE | 2016-09-01 12:28 | CP.PCM.PN ---
Subjective - Date & Time of Evaluation Date of Evaluation: 09/01/16 Time of Evaluation: 07:00 - Subjective Subjective: SURGERY PROGRESS NOTE FOR DR. CHILDERS 76M seen and examined at bedside. Patient is demented. Clinically same. Objective - Vital Signs/Intake and Output Vital Signs (last 24 hours): Temp Pulse Resp BP Pulse Ox 98.7 F 72 20 120/66 97 09/01/16 08:00 09/01/16 08:00 09/01/16 08:00 09/01/16 08:00 09/01/16 08:00 Intake and Output: 09/01/16 09/01/16 06:59 18:59 Intake Total 350 Balance 350 - Medications Medications: Current Medications Dabigatran (Pradaxa) 150 mg PO DAILY [facility] Last Admin: 09/01/16 10:28 Dose: 150 mg Donepezil HCl (Aricept) 5 mg PO HS [facility] Last Admin: 08/31/16 22:54 Dose: 5 mg Enoxaparin Sodium (Lovenox) 40 mg SC DAILY [facility] Last Admin: 09/01/16 10:27 Dose: 40 mg Piperacillin Sod/Tazobactam Sod (Zosyn 2.25 Gm Iv Premix) 2.25 gm in 50 mls @ 100 mls/hr IVPB Q6H [facility] Last Admin: 09/01/16 05:25 Dose: 100 mls/hr Sodium Chloride (Sodium Chloride 0.45%) 1,000 mls @ 40 mls/hr IV .Q24H [facility] Last Admin: 08/31/16 19:58 Dose: 40 mls/hr Insulin Human Regular (Novolin R) 0 unit SC ACHS [facility] PRN Reason: Protocol Last Admin: 09/01/16 08:16 Dose: Not Given Trazodone HCl (Desyrel) 50 mg PO HS [facility] Last Admin: 08/31/16 22:54 Dose: 50 mg - Labs Labs: 09/01/16 06:16 09/01/16 06:16 - Constitutional Appears: Non-toxic, No Acute Distress - Respiratory Exam Respiratory Exam: Clear to Ausculation Bilateral, NORMAL BREATHING PATTERN - Cardiovascular Exam Cardiovascular Exam: REGULAR RHYTHM, +S1, +S2 - Extremities Exam Additional comments: LLE: ~1x1cm ulcer on medial portion of big toe at MTPJ, no drainage noted. + erythema extending over dorsum of foot. Warm to touch. Non-tender. Sesnation and motor fxn intact. Assessment and Plan - Assessment and Plan (Free Text) Assessment: 76M w. L foot ulcer -CTA- Left popliteal stent occluded distally, left posterior tibial occluded, left anterior tibial is occluded, flow in dorsalis pedis via collaterals -c/w abx -d/w attending Artur Clark, PGY1
--- NOTE | 2016-09-01 13:23 | CP.PCM.PN ---
Subjective - Date & Time of Evaluation Date of Evaluation: 09/01/16 Time of Evaluation: 13:22 - Subjective Subjective: CTA , official reading , suggests distal stent occlusion dupex pending will do reg angi0 to evaluate Objective - Vital Signs/Intake and Output Vital Signs (last 24 hours): Temp Pulse Resp BP Pulse Ox 98.7 F 72 20 120/66 97 09/01/16 08:00 09/01/16 08:00 09/01/16 08:00 09/01/16 08:00 09/01/16 08:00 Intake and Output: 09/01/16 09/01/16 06:59 18:59 Intake Total 350 Balance 350 - Medications Medications: Current Medications Dabigatran (Pradaxa) 150 mg PO DAILY [facility] Last Admin: 09/01/16 10:28 Dose: 150 mg Donepezil HCl (Aricept) 5 mg PO HS [facility] Last Admin: 08/31/16 22:54 Dose: 5 mg Enoxaparin Sodium (Lovenox) 40 mg SC DAILY [facility] Last Admin: 09/01/16 10:27 Dose: 40 mg Piperacillin Sod/Tazobactam Sod (Zosyn 2.25 Gm Iv Premix) 2.25 gm in 50 mls @ 100 mls/hr IVPB Q6H [facility] Last Admin: 09/01/16 12:00 Dose: 100 mls/hr Sodium Chloride (Sodium Chloride 0.45%) 1,000 mls @ 40 mls/hr IV .Q24H [facility] Last Admin: 08/31/16 19:58 Dose: 40 mls/hr Insulin Human Regular (Novolin R) [address] [facility] PRN Reason: Protocol Last Admin: 09/01/16 12:30 Dose: 2 unit Trazodone HCl (Desyrel) 50 mg PO HS [facility] Last Admin: 08/31/16 22:54 Dose: 50 mg - Labs Labs: 09/01/16 06:16 09/01/16 06:16
--- NOTE | 2016-09-01 15:59 | CP.PCM.PN ---
Subjective - Date & Time of Evaluation Date of Evaluation: 09/01/16 Time of Evaluation: 11:00 - Subjective Subjective: Alert. awake, no acute distress. Objective - Vital Signs/Intake and Output Vital Signs (last 24 hours): Temp Pulse Resp BP Pulse Ox 97.6 F 74 20 110/62 96 09/01/16 15:49 09/01/16 15:49 09/01/16 15:49 09/01/16 15:49 09/01/16 15:49 Intake and Output: 09/01/16 09/01/16 06:59 18:59 Intake Total 350 Balance 350 - Medications Medications: Current Medications Donepezil HCl (Aricept) 5 mg PO HS [facility] Last Admin: 08/31/16 22:54 Dose: 5 mg Enoxaparin Sodium (Lovenox) 40 mg SC DAILY [facility] Last Admin: 09/01/16 10:27 Dose: 40 mg Piperacillin Sod/Tazobactam Sod (Zosyn 2.25 Gm Iv Premix) 2.25 gm in 50 mls @ 100 mls/hr IVPB Q6H [facility] Last Admin: 09/01/16 12:00 Dose: 100 mls/hr Sodium Chloride (Sodium Chloride 0.45%) 1,000 mls @ 40 mls/hr IV .Q24H [facility] Last Admin: 08/31/16 19:58 Dose: 40 mls/hr Insulin Human Regular (Novolin R) 0 unit SC ACHS [facility] PRN Reason: Protocol Last Admin: 09/01/16 12:30 Dose: 2 unit Trazodone HCl (Desyrel) 50 mg PO HS [facility] Last Admin: 08/31/16 22:54 Dose: 50 mg - Labs Labs: 09/01/16 06:16 09/01/16 06:16 Assessment and Plan - Assessment and Plan (Free Text) Assessment: Patient with diabetic foot ulcer on IVs, antibiotic, will order MRI of the left foot to r/o OM as advised by DR Moore.
[2016-09-01] MEDS: Sodium Chloride 0.45% 1,000 ML IV SCH (17:00)
[2016-09-02] MEDS: Sodium Chloride 0.45% 1,000 ML IV SCH ×2 (03:22→17:33)
[2016-09-02] MEDS: Piperacill/Tazo 2.25gm in Dex 2.25 GM/50 ML BAG IVPB SCH ×4 (05:01→22:02)
[2016-09-02 07:55] LABS: HEMATOCRIT 33.5 % (35.0-51.0); MEAN CELL VOLUME 85.8 fL (80.0-94.0); MEAN CORPUSCULAR HEMOGLOBIN 28.2 pg (27.0-31.0); MEAN CORPUSCULAR HGB CONC 32.8 g/dL (33.0-37.0); MEAN PLATELET VOLUME 7.4 fL (7.2-11.7); RED CELL DISTRIBUTION WIDTH 13.7 % (11.5-14.5); WHITE BLOOD COUNT 9.5 K/uL (4.8-10.8)
--- NOTE | 2016-09-02 08:07 | PN ---
DATE: 09/02/2016 I saw the patient resting in bed. He slept fairly well. He is comfortable. He is very calm. I und erstand they could not do the MRI and I understand there is another angio ordered by Dr. Baez ([facility] vascular doctor). Dr. Boles's opinion is that the cellulitis is resolved and he can be discharged. But there is an occlusion of the stent placed by Dr. Baez. They ordered another angio. Will floyd ve to find out what their plan is for that. PHYSICAL EXAMINATION: VITAL SIGNS: He has a 98.1 temp, 71 pulse, 119/65 blood pressure, 20 respiratory rate, 97% O2 sat on room air. GENERAL: He is pleasantly confused, resting in bed. He is calm. HEAD: Atraumatic, normocephalic. Throat is moist. NECK: Supple. HEART: Regular rate. LUNGS: Clear to auscultation. ABDOMEN: Soft. EXTREMITIES: No edema. Left foot still has the ulcer but it is not as red. MEDICATIONS: He is currently on Aricept, Desyrel, Lovenox, Novolin, IV fluids and Zosyn IV. No growth on blood cultures. He is being seen by infectious disease. They did not change the antibiotic. The supervisor bit and shank department said the cellulitis is resolved. There is a stent occlusion in the left leg. Dr. Baez is going to do an other angio. Hopefully we can open this up. I would love to discharge him home. I need to know fro m infectious disease which oral antibiotic he wants me to put him on, and if Dr. Baez is going to open up the stent or leave it alone, and follow up with Dr. Boles in his office. I do not know if I can discharge him later this afternoon or tomorrow. I will wait for the nurse this afternoon to let me know how his progress progresses and the treatment progresses. We are waiting for labs to come in . LABORATORY DATA: He has a 134 sodium, potassium 3.7, BUN 19, creatinine is 1, GFR is greater than 60 . Last blood sugar is 166. Calcium is 8.4. Total bili is 1.4, AST is 22, ALT is 24, alk phos 64, t otal protein 6.5. TSH is less than 0.02 (I did stop his Synthroid. I will keep the Synthroid off af ter 2nd TSH; they were both very low. Will keep him off his thyroid medication for now). His white count went to 11.2, hemoglobin 10.8, hematocrit 33.1, platelets of 214. I will look forward to liv zuñiga from vascular to see what they are going to do, podiatry to see what their plans are for post hosp ital care and what p.o. antibiotics they want me to place him on on discharge, if he can go home toda y or if we have to keep him another day. I will contact the doctors later. This patient has a left foot ulcer, sent in by the supervisor bit and shank department for further intravenous antibiotics. Mingo Soto DO cc: [id number] TT: 09/02/2016 08:06:51 Confirmation # [id number] Dictation # [id number]
--- NOTE | 2016-09-02 08:17 | PN ---
DATE: 09/01/2016 I saw him resting comfortably in the 4-bedded room, fourth portion. He slept well. No complaints over the evening. He is nonverbal this morning, but looking at me, maybe mildly confused from his dementia, but he is pleasant. PHYSICAL EXAMINATION: VITAL SIGNS: He has a 97.9 temp, 76 pulse, 118/78 blood pressure, 16 respiratory rate, 98% O2 sat on room air. HEENT: Head is atraumatic, normocephalic. NECK: Supple. HEART: Regular rate. LUNGS: Decreased breath sounds, but clear to auscultation. ABDOMEN: Soft. EXTREMITIES: The left foot is bandaged. MEDICATIONS: He is currently on Aricept, Desyrel, Lovenox, Novolin, Pradaxa, IV fluids and Zosyn, I agree. LABORATORY DATA: He has an 8.9 white count, 12.5 hemoglobin, 267 platelets. Sodium 137, potassium is 3.8, GFR is 60, BUN 23, creatinine is 1. Sugar is 132 , AST is 31, ALT is 25, alk phos 75. TSH is very low, 0.02. hold thyroid meds . There are consults for surgery, infectious disease and podiatry. Surgery resident came in, wrote a note. An x-ray of the foot that has finally populated which just came back as soft tissue swelling, evidence of subcutaneous emphysema. That is not good. Abdominal angiography is pending. We are checking his blood sugars. We will get physical therapy. vascular, infectious disease and podiatry. Check his labs tomorrow. Continue IV antibiotics, treatment and care for his left foot ulcer. outpatient. Mingo Soto DO cc: [id number] TT: 09/01/2016 10:06:51 Confirmation # [id number] Dictation # [id number] tn 09/02/2016 07:16:10 PANFILO
[2016-09-02 08:20] LABS: CHLORIDE 104 mmol/L (98-107); POTASSIUM 3.5 mmol/L (3.6-5.2); SODIUM 135 mmol/L (132-148)
[2016-09-02 08:22] LABS: GFR AFRICAN-AMERICAN > 60
[2016-09-02 08:23] LABS: ALB/GLOB RATIO 0.8 (1.0-2.1); ALKALINE PHOSPHATASE 60 U/L (38-126); ALT/SGPT 20 U/L (21-72); AST/SGOT 17 U/L (17-59); BLOOD UREA NITROGEN 20 mg/dL (9-20); CARBON DIOXIDE 19 mmol/L (22-30); GLUCOSE,RANDOM 142 mg/dL (75-110); TOTAL PROTEIN 6.7 g/dL (6.3-8.3)
[2016-09-02 08:24] LABS: CALCIUM 8.2 mg/dl (8.6-10.4)
[2016-09-02] MEDS: (Novolin R) Insulin Human Regular 100 units/ml vial SC SCH ×4 (08:26→21:51)
[2016-09-02] MEDS: Enoxaparin 40 mg Syringe SC SCH (09:37)
[2016-09-02] MEDS ORDERED: Potassium Chloride 20 mEq ER Tab PO ONE (10:00)
[2016-09-02] MEDS ORDERED: Pneumococcal 23-Valent Vaccine IM ONE ×2 (10:00)
--- NOTE | 2016-09-02 10:56 | CP.PCM.PN ---
Subjective - Date & Time of Evaluation Date of Evaluation: 09/02/16 Time of Evaluation: 10:54 - Subjective Subjective: Surgery: Dr. Baez Pt seen and examined. Remains confused and poor historian. No acute events overnight. Objective - Vital Signs/Intake and Output Vital Signs (last 24 hours): Temp Pulse Resp BP Pulse Ox 97.4 F L 74 20 123/68 97 09/02/16 08:00 09/02/16 08:00 09/02/16 08:00 09/02/16 08:00 09/02/16 08:00 Intake and Output: 09/02/16 09/02/16 06:59 18:59 Intake Total 1230 Output Total 600 Balance 630 - Medications Medications: Current Medications Donepezil HCl (Aricept) 5 mg PO [facility] Last Admin: 09/01/16 21:07 Dose: 5 mg Enoxaparin Sodium (Lovenox) 40 mg SC DAILY [facility] Last Admin: 09/02/16 09:37 Dose: 40 mg Piperacillin Sod/Tazobactam Sod (Zosyn 2.25 Gm Iv Premix) 2.25 gm in 50 mls @ 100 mls/hr IVPB Q6H [facility] Last Admin: 09/02/16 05:01 Dose: 100 mls/hr Sodium Chloride (Sodium Chloride 0.45%) 1,000 mls @ 40 mls/hr IV .Q24H [facility] Last Admin: 09/02/16 03:22 Dose: 40 mls/hr Insulin Human Regular (Novolin R) 0 unit SC ACHS [facility] PRN Reason: Protocol Last Admin: 09/02/16 08:26 Dose: 2 unit Lorazepam (Ativan) 0.5 mg PO ONCE PRN PRN Reason: Agitation Stop: 09/02/16 14:01 Trazodone HCl (Desyrel) 50 mg PO [facility] Last Admin: 09/01/16 21:07 Dose: 50 mg - Labs Labs: 09/02/16 07:41 09/02/16 07:41 - Constitutional Appears: Non-toxic, No Acute Distress, Confused - Head Exam Head Exam: ATRAUMATIC, NORMOCEPHALIC - Eye Exam Eye Exam: EOMI - ENT Exam ENT Exam: Mucous Membranes Moist - Neck Exam Neck Exam: Full ROM - Respiratory Exam Respiratory Exam: NORMAL BREATHING PATTERN. absent: Respiratory Distress - GI/Abdominal Exam GI & Abdominal Exam: Soft. absent: Tenderness - Extremities Exam Additional comments: LLE, ulcer over medial portion of MTPJ, erythema extending over dorsum of foot, warm to touch - Neurological Exam Neurological Exam: Alert, Awake. absent: Oriented x3 Assessment and Plan - Assessment and Plan (Free Text) Assessment: 76M w. L foot ulcer -CTA results reviewed -Arterial duplex ordered, f/u results -d/w attending Rainaitis PGY2
--- NOTE | 2016-09-02 12:37 | CP.PCM.PN ---
<Richard Hernández Y - Last Filed: 09/02/16 13:10> Subjective - Date & Time of Evaluation Date of Evaluation: 09/02/16 Time of Evaluation: 13:10 - Subjective Subjective: 76 y/o male patient seen and evaluated at bedside with attending Dr. Boles for follow up on left foot resolved cellulitis and open wound. Patient was resting comfortably in chair at the bedside. Patient's daughter presents at bedside today. Patient denies any pedal pain at this time. Per nurse Patient went to MRI however he could not complete the MRI due to he crawled from the MRI machine. Patient denies any symptoms of N/V/F/SOB/Chest pain. Objective - Vital Signs/Intake and Output Vital Signs (last 24 hours): Temp Pulse Resp BP Pulse Ox 97.4 F L 74 20 123/68 97 09/02/16 08:00 09/02/16 08:00 09/02/16 08:00 09/02/16 08:00 09/02/16 08:00 Intake and Output: 09/02/16 09/02/16 06:59 18:59 Intake Total 1230 Output Total 600 Balance 630 - Medications Medications: Current Medications Donepezil HCl (Aricept) 5 mg PO HS [facility] Last Admin: 09/01/16 21:07 Dose: 5 mg Enoxaparin Sodium (Lovenox) 40 mg SC DAILY [facility] Last Admin: 09/02/16 09:37 Dose: 40 mg Piperacillin Sod/Tazobactam Sod (Zosyn 2.25 Gm Iv Premix) 2.25 gm in 50 mls @ 100 mls/hr IVPB Q6H [facility] Last Admin: 09/02/16 05:01 Dose: 100 mls/hr Sodium Chloride (Sodium Chloride 0.45%) 1,000 mls @ 40 mls/hr IV .Q24H [facility] Last Admin: 09/02/16 03:22 Dose: 40 mls/hr Insulin Human Regular (Novolin R) 0 unit SC ACHS [facility] PRN Reason: Protocol Last Admin: 09/02/16 12:22 Dose: 1 unit Lorazepam (Ativan) 0.5 mg PO ONCE PRN PRN Reason: Agitation Stop: 09/02/16 14:01 Trazodone HCl (Desyrel) 50 mg PO HS [facility] Last Admin: 09/01/16 21:07 Dose: 50 mg - Labs Labs: 09/02/16 07:41 09/02/16 07:41 - Constitutional Appears: Well, Non-toxic, No Acute Distress - Extremities Exam Additional comments: Vascular: DP and PT palpable, CFT is less than 3 seconds, No pedal edema noted Derm: Small superficial open wound noted to the medial aspect of left 1st MPJ ( 2 cm x 3 cm), no drainage, no signs of infection, no erythema, no tunneling, no sinus tract, wound base is fibrotic Ortho: No pain with palpation, history of 2nd digit amputation Neuro: Diminished Protective sensation and light touch. - Neurological Exam Neurological Exam: Alert, Altered, Awake - Psychiatric Exam Psychiatric exam: Normal Affect, Normal Mood Assessment and Plan - Assessment and Plan (Free Text) Assessment: 76 y/o male patient with left foot resolved cellulitis and open wound at medial aspect of left foot 1st MPJ Plan: Patient seen and evaluated at bedside with Left foot cellulitis is clinically resolved Podiatry plan: Patient can be discharge home tomorrow after IV abx treatment or to [facility] for IV abx treatment Blooc cx: Gram Positive Cocci Labs and vitals were reviewed x rays were reviewed Wound cx was obtained Patient will be f/u with Dr. Boles upon D/C <Jake Boles - Last Filed: 09/02/16 21:39> Objective - Vital Signs/Intake and Output Vital Signs (last 24 hours): Temp Pulse Resp BP Pulse Ox 98.5 F 84 20 114/68 95 09/02/16 15:00 09/02/16 15:00 09/02/16 15:00 09/02/16 15:00 09/02/16 15:00 Intake and Output: 09/02/16 09/03/16 18:59 06:59 Intake Total 170 Output Total 2 Balance 168 - Medications Medications: Current Medications Dabigatran (Pradaxa) 150 mg PO DAILY [facility] Last Admin: 09/02/16 17:36 Dose: 150 mg Donepezil HCl (Aricept) 5 mg PO HS [facility] Last Admin: 09/02/16 21:33 Dose: 5 mg Enoxaparin Sodium (Lovenox) 40 mg SC DAILY [facility] Stop: 09/03/16 10:01 Piperacillin Sod/Tazobactam Sod (Zosyn 2.25 Gm Iv Premix) 2.25 gm in 50 mls @ 100 mls/hr IVPB Q6H [facility] Last Admin: 09/02/16 17:35 Dose: 100 mls/hr Sodium Chloride (Sodium Chloride 0.45%) 1,000 mls @ 40 mls/hr IV .Q24H [facility] Last Admin: 09/02/16 17:33 Dose: Not Given Insulin Human Regular (Novolin R) 0 unit SC ACHS [facility] PRN Reason: Protocol Last Admin: 09/02/16 17:25 Dose: 2 unit Trazodone HCl (Desyrel) 50 mg PO HS [facility] Last Admin: 09/02/16 21:33 Dose: 50 mg - Labs Labs: 09/02/16 07:41 09/02/16 07:41 Attending/Attestation - Attestation I have personally seen and examined this patient.: Yes I have fully participated in the care of the patient.: Yes I have reviewed all pertinent clinical information, including history, physical exam and plan: Yes
--- NOTE | 2016-09-02 18:17 | CON ---
DATE: 09/02/2016 The patient is a 76-year-old man with dementia. He previously underwent therapy on his left leg endo vascularly including thrombosis of a previously placed popliteal artery aneurysm stent and peroneal s tents. A CT was done and it suggested that there may be occlusion of the stent. Subsequently, I had to review this with Dr. Rodriguez and with Dr. Cunningham and there are 2 parallel stents, one of which was crushed and is thrombosed and the other which appears to be open. A duplex scan was done today and t his appears to have good velocities across without any increase in velocities associated with this. IMPRESSION: The patient has a patent stent. It is wide open with good flow. I have no plans for an y surgical intervention. 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 This has been rev iewed and discussed with the patient and regarding the options, particularly with the and at thi s time there is a feeling that they do not want to do anything at this time. 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 Ferdinand Baez Jr., MD cc: [id number] TT: 09/02/2016 18:17:05 Confirmation # [id number] Dictation # [id number]
--- NOTE | 2016-09-02 18:33 | CP.PCM.PN ---
Subjective - Date & Time of Evaluation Date of Evaluation: 09/02/16 Time of Evaluation: 08:00 - Subjective Subjective: iv rx in progress MRI could not be done cont rx empirically follow sed rate/ crp cont rx for min 3 weeks consider bone scan with sedation Objective - Vital Signs/Intake and Output Vital Signs (last 24 hours): Temp Pulse Resp BP Pulse Ox 98.5 F 84 20 114/68 95 09/02/16 15:00 09/02/16 15:00 09/02/16 15:00 09/02/16 15:00 09/02/16 15:00 Intake and Output: 09/02/16 09/02/16 06:59 18:59 Intake Total 1230 170 Output Total 600 2 Balance 630 168 - Medications Medications: Current Medications Dabigatran (Pradaxa) 150 mg PO DAILY [facility] Last Admin: 09/02/16 17:36 Dose: 150 mg Donepezil HCl (Aricept) 5 mg PO HS [facility] Last Admin: 09/01/16 21:07 Dose: 5 mg Enoxaparin Sodium (Lovenox) 40 mg SC DAILY [facility] Stop: 09/03/16 10:01 Piperacillin Sod/Tazobactam Sod (Zosyn 2.25 Gm Iv Premix) 2.25 gm in 50 mls @ 100 mls/hr IVPB Q6H [facility] Last Admin: 09/02/16 17:35 Dose: 100 mls/hr Sodium Chloride (Sodium Chloride 0.45%) 1,000 mls @ 40 mls/hr IV .Q24H [facility] Last Admin: 09/02/16 17:33 Dose: Not Given Insulin Human Regular (Novolin R) 0 unit SC ACHS [facility] PRN Reason: Protocol Last Admin: 09/02/16 17:25 Dose: 2 unit Trazodone HCl (Desyrel) 50 mg PO HS [facility] Last Admin: 09/01/16 21:07 Dose: 50 mg - Labs Labs: 09/02/16 07:41 09/02/16 07:41 Assessment and Plan (1) Arterial insufficiency of lower extremity Status: Acute (2) Cellulitis Status: Acute (3) Change in mental status Status: Acute (4) Dementia Status: Acute (5) Gangrenous toe Status: Acute (6) Peripheral vascular disease Status: Acute (7) TIA (transient ischemic attack) Status: Acute
[2016-09-03] MEDS: Piperacill/Tazo 2.25gm in Dex 2.25 GM/50 ML BAG IVPB SCH ×3 (05:00→17:48)
[2016-09-03] MEDS: (Novolin R) Insulin Human Regular 100 units/ml vial SC SCH ×3 (07:50→17:52)
[2016-09-03 07:53] LABS: BASO # 0.1 K/uL (0.0-0.2); BASO % 0.5 % (0.0-2.0); EOS # 0.6 K/uL (0.0-0.7); HEMATOCRIT 33.6 % (35.0-51.0); LYMPH # 1.8 K/uL (1.0-4.3); LYMPH % 16.2 % (20.0-40.0); MEAN CELL VOLUME 86.4 fL (80.0-94.0); MEAN CORPUSCULAR HEMOGLOBIN 28.3 pg (27.0-31.0); MEAN CORPUSCULAR HGB CONC 32.8 g/dL (33.0-37.0); MEAN PLATELET VOLUME 7.8 fL (7.2-11.7); MONO # 1.5 K/uL (0.0-0.8); MONO % 13.7 % (0.0-10.0); RED CELL DISTRIBUTION WIDTH 13.7 % (11.5-14.5); WHITE BLOOD COUNT 10.8 K/uL (4.8-10.8)
[2016-09-03 08:37] LABS: CHLORIDE 101 mmol/L (98-107); POTASSIUM 3.6 mmol/L (3.6-5.2); SODIUM 134 mmol/L (132-148)
[2016-09-03 08:39] LABS: BILIRUBIN,TOTAL 0.9 mg/dL (0.2-1.3); GFR AFRICAN-AMERICAN > 60
[2016-09-03 08:40] LABS: ALB/GLOB RATIO 0.6 (1.0-2.1); ALKALINE PHOSPHATASE 62 U/L (38-126); ALT/SGPT 26 U/L (21-72); AST/SGOT 20 U/L (17-59); BLOOD UREA NITROGEN 15 mg/dL (9-20); CARBON DIOXIDE 25 mmol/L (22-30); GLUCOSE,RANDOM 124 mg/dL (75-110); TOTAL PROTEIN 6.9 g/dL (6.3-8.3)
[2016-09-03 08:41] LABS: CALCIUM 8.4 mg/dl (8.6-10.4)
[2016-09-03] MEDS ORDERED: Potassium Chloride 20 mEq ER Tab PO SCH (10:00)
[2016-09-03] MEDS ORDERED: Enoxaparin 40 mg Syringe SC ONE (10:00)
--- NOTE | 2016-09-03 10:18 | VASCLAB ---
PROCEDURE: HISTORY: PVD status post stenting with pain. COMPARISON: None available. TECHNIQUE: Grayscale and duplex Doppler evaluation of the bilateral common femoral, femoral, profunda femoral, popliteal, posterior tibial, anterior tibial and dorsalis pedis arteries was performed. Report prepared by Viviana Boles, RDKLEVER, RVS FINDINGS: RIGHT LOWER EXTREMITY: * Common Femoral Artery: Peak Systolic Velocity - 159: Doppler Waveform: Triphasic.: Plaque description - * Profunda Femoral Artery: Peak Systolic Velocity - 132: Doppler Waveform: Triphasic.: Plaque description - * Femoral Artery o Proximal Segment: Peak Systolic Velocity - 117Doppler Waveform: Triphasic.: Plaque description - o Middle Segment: Peak Systolic Velocity - 72: Doppler Waveform: Triphasic.: Plaque description - o Distal Segment: Peak Systolic Velocity - 81: Doppler Waveform: Triphasic.: Plaque description - * Popliteal Artery o Proximal Segment: Peak Systolic Velocity - 80: Doppler Waveform: Triphasic.: Plaque description - o Middle Segment: Peak Systolic Velocity - 441: Doppler Waveform: Biphasic: Plaque description - o Distal Segment: Peak Systolic Velocity - 24: Doppler Waveform: Monophasic: Plaque description - * Posterior Tibial Artery: Peak Systolic Velocity - 91: Doppler Waveform: Monophasic: Plaque description - * Anterior Tibial Artery: Peak Systolic Velocity - 43: Doppler Waveform: Monophasic: Plaque description - * Dorsalis Pedis Artery: Peak Systolic Velocity - : Doppler Waveform: Plaque description - LEFT LOWER EXTREMITY: * Common Femoral Artery: Peak Systolic Velocity - 85: Doppler Waveform: Triphasic.: Plaque description - * Profunda Femoral Artery: Peak Systolic Velocity - 72: Doppler Waveform: Biphasic: Plaque description - * Femoral Artery o Proximal Segment: Peak Systolic Velocity - 113: Doppler Waveform: Monophasic: Plaque description - o Middle Segment: Peak Systolic Velocity - 45: Doppler Waveform: Monophasic: Plaque description - o Distal Segment: Peak Systolic Velocity - 64: Doppler Waveform: Monophasic: Plaque description - * Popliteal Artery o Proximal Segment: Peak Systolic Velocity - 45: Doppler Waveform: Monophasic: Plaque description - o Middle Segment: Peak Systolic Velocity - 46: Doppler Waveform: Monophasic: Plaque description - o Distal Segment: Peak Systolic Velocity - 56: Doppler Waveform: Monophasic: Plaque description - * Posterior Tibial Artery: Peak Systolic Velocity - 100: Doppler Waveform: Monophasic: Plaque description - * Anterior Tibial Artery: Peak Systolic Velocity - 90: Doppler Waveform: Monophasic: Plaque description - * Dorsalis Pedis Artery: Peak Systolic Velocity - : Doppler Waveform: : Plaque description - OTHER FINDINGS: None. IMPRESSION: 1. There is a dilatation of the mid popliteal artery with the thrombus within of the right lower extremity. 2. Left leg fem-pop stent is patent. The peroneal stent was not evaluated.
--- NOTE | 2016-09-03 11:44 | CP.PCM.PN ---
Subjective - Date & Time of Evaluation Date of Evaluation: 09/03/16 Time of Evaluation: 11:43 - Subjective Subjective: Surgery: Dr. Baez Pt seen and examined. Remains confused. No acute events overnight. Objective - Vital Signs/Intake and Output Vital Signs (last 24 hours): Temp Pulse Resp BP Pulse Ox 98.5 F 115 H 20 147/74 95 09/03/16 08:00 09/03/16 08:00 09/03/16 08:00 09/03/16 08:00 09/03/16 08:00 Intake and Output: 09/03/16 09/03/16 06:59 18:59 Intake Total 990 Output Total 1050 Balance -60 - Medications Medications: Current Medications Dabigatran (Pradaxa) 150 mg PO DAILY [facility] Last Admin: 09/02/16 17:36 Dose: 150 mg Donepezil HCl (Aricept) 5 mg PO HS [facility] Last Admin: 09/02/16 21:33 Dose: 5 mg Piperacillin Sod/Tazobactam Sod (Zosyn 2.25 Gm Iv Premix) 2.25 gm in 50 mls @ 100 mls/hr IVPB Q6H [facility] Last Admin: 09/03/16 10:23 Dose: 100 mls/hr Sodium Chloride (Sodium Chloride 0.45%) 1,000 mls @ 40 mls/hr IV .Q24H [facility] Last Admin: 09/02/16 17:33 Dose: Not Given Insulin Human Regular (Novolin R) 0 unit SC ACHS [facility] PRN Reason: Protocol Last Admin: 09/03/16 07:50 Dose: Not Given Potassium Chloride (K-Dur 20 Meq Er Tab) 20 meq PO DAILY [facility] Last Admin: 09/03/16 09:41 Dose: 20 meq Trazodone HCl (Desyrel) 50 mg PO HS [facility] Last Admin: 09/02/16 21:33 Dose: 50 mg - Labs Labs: 09/03/16 07:33 09/03/16 07:33 - Constitutional Appears: Non-toxic, No Acute Distress, Confused - Head Exam Head Exam: ATRAUMATIC, NORMOCEPHALIC - Eye Exam Eye Exam: EOMI - ENT Exam ENT Exam: Mucous Membranes Moist - Neck Exam Neck Exam: Full ROM - Respiratory Exam Respiratory Exam: NORMAL BREATHING PATTERN. absent: Accessory Muscle Use, Respiratory Distress - Extremities Exam Additional comments: L foot, dressing in place, C/D/I - Neurological Exam Neurological Exam: Alert, Awake. absent: Oriented x3 Assessment and Plan - Assessment and Plan (Free Text) Assessment: 76M w. L foot ulcer and R popliteal aneurysm -CTA and arterial duplex reviewed -per Dr. Baez, pt family does not want further intervention done at this time -d/w attending Giancarlo PGY2
--- NOTE | 2016-09-03 12:45 | PCM.SURG1 ---
Surgeon's Initial Post Op Note - Surgeon's Notes Surgeon: Camille Sethi Loft Worker Pile Driving: NONE Type of Anesthesia: Local Pre-Operative Diagnosis: Poor venous access Operative Findings: Patent right basilic vein. Unable to advance picc into SVCV. Post-Operative Diagnosis: Poor venous access Operation Performed: Placement of single lumen picc, 25 cm. Tip in axillary vein. Specimen/Specimens Removed: NONE Estimated Blood Loss: EBL {In ML}: 2 Blood Products Given: N/A Drains Used: No Drains Post-Op Condition: Fair Date of Surgery/Procedure: 09/03/16 Time of Surgery/Procedure: 11:15
--- NOTE | 2016-09-03 13:46 | CP.PCM.PN ---
Subjective - Date & Time of Evaluation Date of Evaluation: 09/03/16 Time of Evaluation: 13:44 - Subjective Subjective: 76 y/o male patient seen and evaluated at bedside for follow up on left foot resolved cellulitis and open wound. Patient was resting comfortably in bed at the bedside. Patient's daughter presents at bedside today. Patient denies any pedal pain at this time. Patient denies any symptoms of N/V/F/SOB/Chest pain. Objective - Vital Signs/Intake and Output Vital Signs (last 24 hours): Temp Pulse Resp BP Pulse Ox 98.5 F 115 H 20 147/74 95 09/03/16 08:00 09/03/16 08:00 09/03/16 08:00 09/03/16 08:00 09/03/16 08:00 Intake and Output: 09/03/16 09/03/16 06:59 18:59 Intake Total 990 Output Total 1050 Balance -60 - Medications Medications: Current Medications Dabigatran (Pradaxa) 150 mg PO DAILY [facility] Last Admin: 09/03/16 12:49 Dose: 150 mg Donepezil HCl (Aricept) 5 mg PO [facility] Last Admin: 09/02/16 21:33 Dose: 5 mg Piperacillin Sod/Tazobactam Sod (Zosyn 2.25 Gm Iv Premix) 2.25 gm in 50 mls @ 100 mls/hr IVPB Q6H [facility] Last Admin: 09/03/16 10:23 Dose: 100 mls/hr Sodium Chloride (Sodium Chloride 0.45%) 1,000 mls @ 40 mls/hr IV .Q24H [facility] Last Admin: 09/02/16 17:33 Dose: Not Given Insulin Human Regular (Novolin R) 0 unit SC ACHS [facility] PRN Reason: Protocol Last Admin: 09/03/16 12:43 Dose: 2 unit Potassium Chloride (K-Dur 20 Meq Er Tab) 20 meq PO DAILY [facility] Last Admin: 09/03/16 09:41 Dose: 20 meq Trazodone HCl (Desyrel) 50 mg PO HS [facility] Last Admin: 09/02/16 21:33 Dose: 50 mg - Labs Labs: 09/03/16 07:33 09/03/16 07:33 - Constitutional Appears: Well, Non-toxic, No Acute Distress - Extremities Exam Additional comments: Vascular: DP and PT palpable, CFT is less than 3 seconds, No pedal edema noted Derm: Small superficial open wound noted to the medial aspect of left 1st MPJ ( 2 cm x 3 cm), no drainage, no signs of infection, no erythema, no tunneling, no sinus tract, wound base is fibrotic Ortho: No pain with palpation, history of 2nd digit amputation Neuro: Diminished Protective sensation and light touch. - Neurological Exam Neurological Exam: Alert, Awake - Psychiatric Exam Psychiatric exam: Normal Affect, Normal Mood Assessment and Plan - Assessment and Plan (Free Text) Assessment: 76 y/o male patient with left foot resolved cellulitis and open wound at medial aspect of left foot 1st MPJ Plan: Patient seen and evaluated at bedside Left foot cellulitis is clinically resolved Podiatry plan: Patient can be discharge home tomorrow after IV abx treatment or to [facility] for IV abx treatment Blooc cx: Gram Positive Cocci Labs and vitals were reviewed x rays were reviewed Wound cx -pending Patient will be f/u with Dr. Boles upon D/C
--- NOTE | 2016-09-03 15:36 | US ---
Date of procedure: 09/03/2016 Procedure: Ultrasound guidance for vascular access HISTORY: Infection requiring long-term IV antibiotics TECHNIQUE: Following informed consent and procedure time-out, the patient placed supine on the interventional table and the right arm prepped and draped in the usual sterile fashion. Ultrasound showed a patent and compressible basilic vein. After the skin was anesthetized with lidocaine, the basilic vein was accessed with micro micropuncture technique using ultrasound guidance. An image documenting ultrasound guidance for vascular access was permanently saved. IMPRESSION: Ultrasound guidance for vascular access for placement of PICC.
--- NOTE | 2016-09-03 15:36 | RAD ---
PROCEDURE: Date of procedure: 09/03/2016 Procedure: 1. Placement of a right arm PICC with ultrasound and fluoroscopic guidance, CPT 17531 Medications: 3cc 1 percent lidocaine Total Fluoro time:89.6 seconds Radiation: 27.122mGy EBL: 2 cc HISTORY: Bacteremia requiring long-term IV antibiotics TECHNIQUE: Following informed consent and procedure time-out, the patient was placed supine on the interventional table and the right arm prepped and draped in the usual sterile fashion. Ultrasound showed a patent and compressible right basilic vein. After the skin was anesthetized with lidocaine, the basilic vein was accessed with micro micropuncture technique using ultrasound guidance. There is difficulty advancing guidewire into superior vena cava. An image documenting ultrasound guidance for vascular access was permanently saved. The length of the single-lumen 4 [place]ian PICC was trimmed to 25 centimeters and advanced through a peel-away sheath. The PICC was position with tip of PICC confirm a spot radiograph in the axillary vein. The PICC was secured to the patient's skin. The PICC was flushed. A biopatch and sterile dressing was applied. IMPRESSION: Placement of a single-lumen 4 Ivorian PICC trimmed to 25 centimeters via right basilic vein. The tip of the PICC is confirmed with spot radiograph and is in the axillary vein. There was difficulty advancing the PICC into the superior vena cava.
[2016-09-03 17:06] VITALS: BP 105/47; PULSE 57; TEMP 99; O2SAT 96
[2016-09-03] MEDS: Sodium Chloride 0.45% 1,000 ML IV SCH (17:52)
--- NOTE | 2016-09-03 18:16 | CP.PCM.PN ---
Subjective - Date & Time of Evaluation Date of Evaluation: 09/03/16 Time of Evaluation: 10:00 - Subjective Subjective: cultures of blood + await id and sensi Objective - Vital Signs/Intake and Output Vital Signs (last 24 hours): Temp Pulse Resp BP Pulse Ox 99.0 F 57 L 20 105/47 L 96 09/03/16 16:00 09/03/16 16:00 09/03/16 16:00 09/03/16 16:00 09/03/16 16:00 Intake and Output: 09/03/16 09/03/16 06:59 18:59 Intake Total 990 420 Output Total 1050 400 Balance -60 20 - Medications Medications: Current Medications Dabigatran (Pradaxa) 150 mg PO DAILY [facility] Last Admin: 09/03/16 12:49 Dose: 150 mg Donepezil HCl (Aricept) 5 mg PO [facility] Last Admin: 09/02/16 21:33 Dose: 5 mg Piperacillin Sod/Tazobactam Sod (Zosyn 2.25 Gm Iv Premix) 2.25 gm in 50 mls @ 100 mls/hr IVPB Q6H [facility] Last Admin: 09/03/16 17:48 Dose: 100 mls/hr Sodium Chloride (Sodium Chloride 0.45%) 1,000 mls @ 40 mls/hr IV .Q24H [facility] Last Admin: 09/03/16 17:52 Dose: Not Given Insulin Human Regular (Novolin R) 0 unit SC ACHS [facility] PRN Reason: Protocol Last Admin: 09/03/16 17:52 Dose: Not Given Potassium Chloride (K-Dur 20 Meq Er Tab) 20 meq PO DAILY [facility] Last Admin: 09/03/16 09:41 Dose: 20 meq Trazodone HCl (Desyrel) 50 mg PO HS [facility] Last Admin: 09/02/16 21:33 Dose: 50 mg - Labs Labs: 09/03/16 07:33 09/03/16 07:33 - Constitutional Appears: Non-toxic, Chronically Ill - Head Exam Head Exam: NORMOCEPHALIC - Eye Exam Eye Exam: PERRL. absent: Scleral icterus - ENT Exam ENT Exam: Mucous Membranes Dry - Neck Exam Neck Exam: absent: Lymphadenopathy - Respiratory Exam Respiratory Exam: Decreased Breath Sounds, Clear to Ausculation Bilateral Assessment and Plan (1) Arterial insufficiency of lower extremity Status: Acute (2) Cellulitis Status: Acute (3) Change in mental status Status: Acute (4) Dementia Status: Acute (5) Gangrenous toe Status: Acute (6) Peripheral vascular disease Status: Acute (7) TIA (transient ischemic attack) Status: Acute
--- NOTE | 2016-09-03 19:53 | DS ---
I saw the patient in bed, resting comfortably. He slept very well. He in no acute distress. He is comfortable. He is getting his IV antibiotics. I discussed with the at length yesterday that ezequiel ramsey need him to go to subacute rehab to get stronger before he goes home and maybe he will get a jerel le bit more mentally with it. He has been doing some strange things at home. Also, the infectious d formerly [facility] doctor wants him on 3 weeks of IV antibiotics since we cannot get an MRI from him to look for any osteomyelitis. So he will need 3 weeks of IV antibiotics. We are going to go to [facility]; that is their choice that they want to go to. PHYSICAL EXAMINATION: VITAL SIGNS: 98.8 temp, 81 pulse, 119/61 blood pressure, 20 respiratory rate, 97% O2 sat on room air . HEENT: His head is atraumatic, normocephalic. His mouth is moist. NECK: Supple. HEART: Regular rate. LUNGS: Decreased breath sounds but clear. ABDOMEN: Soft, nontender, positive bowel sounds. EXTREMITIES: Have no edema. He has a popliteal artery aneurysm, brisk flow as per Dr. Baez, the vascular doctor. 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 Dr. Moore[facility] wants him on IV antibiotics for 3 more weeks. He will go on his Aricept, Desyrel, Lovenox, No volin, Pradaxa, IV fluids and Zosyn IV. I am also going to give him replacement of potassium because his labs showed a 135 sodium, potassium is low at 3.5, BUN 20, creatinine 1.2, GFR is 59, sugar is 1 42, calcium is 8.2. AST is 17, ALT is 20 and alk phos is 60, total protein 6.7, albumin is 2.9, glob ulin 3.8. White count is 9.5, hemoglobin is 11, hematocrit 33.5, platelets of 242. He is being seen by infectious disease, vascular, podiatry. I am going to get him to [facility] rehab for IV antibiotics for 3 weeks of physical therapy before he goes home to his . I disc ussed with his at length. Hopefully he can be discharged today to [facility] for subacute rehab and IV antibiotics for 3 weeks. Keep the IV in please. Mingo Soto DO cc: [id number] TT: 09/03/2016 19:53:16 carlos a
== END 2016-09-03 21:41 | DRG 300 ==
LOC: C.ER 13:59 → C.9E 15:08 → C.3T 19:30
PROVIDERS: ADMIT Family Medicine; ATTEND Family Medicine
PROC: 05H733Z Insertion of Infusion Device into Right Axillary Vein, Percutaneous Approach (ICD-10-PCS; principal; 2016-09-03)
PROC: B51M1ZA Fluoroscopy of Right Upper Extremity Veins using Low Osmolar Contrast, Guidance (ICD-10-PCS; 2016-09-03)
DX: E11.52 Type 2 diabetes mellitus with diabetic peripheral angiopathy with gangrene (principal); L03.116 Cellulitis of left lower limb; E11.621 Type 2 diabetes mellitus with foot ulcer; T82.856A Stenosis of peripheral vascular stent, initial encounter; L97.529 Non-pressure chronic ulcer of other part of left foot with unspecified severity; G30.9 Alzheimer's disease, unspecified; I72.4 Aneurysm of artery of lower extremity; F02.80 Dementia in other diseases classified elsewhere, unspecified severity, without behavioral disturbance, psychotic disturbance, mood disturbance, and anxiety; I48.91 Unspecified atrial fibrillation; I77.1 Stricture of artery; I10 Essential (primary) hypertension; Y83.8 Other surgical procedures as the cause of abnormal reaction of the patient, or of later complication, without mention of misadventure at the time of the procedure; E03.9 Hypothyroidism, unspecified; Z87.01 Personal history of pneumonia (recurrent); Z95.5 Presence of coronary angioplasty implant and graft; Z83.3 Family history of diabetes mellitus; Z82.49 Family history of ischemic heart disease and other diseases of the circulatory system; Z79.4 Long term (current) use of insulin; Z87.891 Personal history of nicotine dependence

== ENCOUNTER 2016-09-07 10:34 | Inpatient (IN) | payer MEDICARE ==
[2016-09-07 10:34] VITALS: BMI 21.4
--- NOTE | 2016-09-07 11:01 | C.PDOC ---
History Of Present Illness 76 y/o male with past medical history of dementia, diabetes, and afib on Pradaxa , sent from the half-way for fall from wheelchair striking head, and reported 1 episode of vomiting. Further ROS unattainable due to pt's inability to answer questions. - HPI Time Seen by Provider: 09/07/16 10:45 Chief Complaint (Nursing): Trauma History Per: Patient History/Exam Limitations: clinical condition Injury Occurred (Timing): Just Before Arrival Location Of Injury: Right: Head (forehead) Recent travel outside of the [place]: No Past Medical History Reviewed: Historical Data, Nursing Documentation, Vital Signs Vital Signs: Last Vital Signs Temp 98.9 F 09/07/16 11:38 Pulse 93 H 09/07/16 13:19 Resp 16 09/07/16 13:19 BP 112/60 09/07/16 13:19 Pulse Ox 86 L 09/07/16 12:36 - Medical History PMH: Alzheimer's Disease, Atrial Fibrillation, Cardia Arrhythmia (A.FIB), Dementia, Depression, Diabetes, HTN, Hypothyroidism, Pneumonia (2011) Surgical History: Cholecystectomy, Coronary Stent - [facility] Procedures DEBRID OPN FX-FINGER (11/10/00) DETACHMENT AT LEFT 2ND TOE, COMPLETE, OPEN APPROACH (01/13/16) DILATE OF L PERONEAL ART WITH DRUG-ELUT INTRA, PERC APPROACH (01/07/16) DILATION OF L FEM ART USING DRUG BLLN, PERC APPROACH (01/07/16) DILATION OF L POPL ART USING DRUG BLLN, PERC APPROACH (01/07/16) EXTIRPATION OF MATTER FROM L FEM ART, BIFURC, PERC APPROACH (01/07/16) EXTIRPATION OF MATTER FROM L PERONEAL ART, PERC APPROACH (01/07/16) EXTIRPATION OF MATTER FROM L POPL ART, PERC APPROACH (01/07/16) FLUOROSCOPY R UP EXTREM VEIN W L OSM CONTRAST, GUIDANCE (08/31/16) INSERTION OF INFUSION DEV INTO R AXILLA VEIN, PERC APPROACH (08/31/16) NAIL REMOVAL (11/10/00) OPEN RED-INT FIX FINGER (11/10/00) OTHER SKIN & SUBQ I D (11/10/00) TETANUS TOXOID ADMINIST (11/09/00) Family History: States: Unknown Family Hx - Social History Hx Alcohol Use: No Hx Substance Use: No - Immunization History Hx Tetanus Toxoid Vaccination: No Hx Influenza Vaccination: No Hx Pneumococcal Vaccination: No Review Of Systems Review Of Systems: ROS cannot be obtained secondary to pt's inabilty to answer questions. Physical Exam - Physical Exam Additional Physical Exam Comments: Constitutional: Awake. No acute distress. Head: Normocephalic. Abrasion right sided forehead. Eyes: PERRL. ENT: Moist mucous membranes. Neck: Supple. No midline tenderness. Cardiovascular: Regular rate. Radial pulses 2+ bilaterally. Chest: No tenderness. Respiratory: Laboring to breath. GI: Soft. Nontender. Nondistended. Back: No midline tenderness. No CVA tenderness. Musculoskeletal: Full ROM x 4. No tenderness of extremities. Skin: Ulcers to L foot. Neurologic: Awake, does not respond to questions always. ED Course And Treatment - Laboratory Results Result Diagrams: 09/07/16 11:01 09/07/16 11:01 ECG: Interpreted By [place] ECG Rhythm: Atrial Fibrillation, L BBB Interpretation Of ECG: no concordant ST elevations Rate From EC O2 Sat by Pulse Oximetry: 86 Medical Decision Making Medical Decision Making: Plan: * CT cervical spine * CT head * Labs * CxR * Pelvis XR * Reassess Progress: PROCEDURE: CT HEAD WITHOUT CONTRAST. HISTORY: fall, head injury COMPARISON: 03/29/2016 TECHNIQUE: Axial computed tomography images were obtained through the head/brain without intravenous contrast. Radiation dose: Total exam DLP = 1692.78 mGy-cm. This CT exam was performed using one or more of the following dose reduction techniques: Automated exposure control, adjustment of the mA and/or kV according to patient size, and/or use of iterative reconstruction technique. FINDINGS: HEMORRHAGE: No intracranial hemorrhage. BRAIN: No mass effect or edema. Moderate diffuse age-appropriate cerebral atrophy. Mild periventricular white matter lucency consistent with age-related microvascular ischemic change. No evidence of acute infarct. VENTRICLES: Mild ventricular dilatation consistent with the degree of surrounding parenchymal atrophy. No evidence of hydrocephalus. CALVARIUM: Unremarkable. PARANASAL SINUSES: Unremarkable as visualized. No significant inflammatory changes. MASTOID AIR CELLS: Unremarkable as visualized. No inflammatory changes. OTHER FINDINGS: None. IMPRESSION: No intracranial hemorrhage. Age-appropriate involutional change. PROCEDURE: CT Cervical Spine without contrast HISTORY: Fall COMPARISON: None available. TECHNIQUE: Axial computed tomography images were obtained of the cervical spine without the use of intravenous contrast. Coronal and sagittal reformatted images were created and reviewed. Radiation dose: Total exam DLP = 500.89 mGy-cm. This CT exam was performed using one or more of the following dose reduction techniques: Automated exposure control, adjustment of the mA and/or kV according to patient size, and/or use of iterative reconstruction technique. FINDINGS: VERTEBRAE: The vertebral bodies are maintained in height. Normal vertebral alignment is maintained. The atlantoaxial articulation and odontoid process are intact. There is focal ossification of the nuchal ligament incidentally noted at the C5 and C6 levels. DISCS/SPINAL CANAL/NEURAL FORAMINA: There is severe narrowing of multiple intervertebral disc spaces including C3-4 through C7-T1. There is disc bulge noted at C3-4. Probable focal left parasagittal disc herniation at C4-5. Please note that evaluation of intervertebral disc pathology is limited on the basis of CT examination. There is multilevel bilateral neural foraminal stenosis. There is central spinal stenosis noted the C3-4, C4-5 and C5-6 intervertebral disc space levels. PARASPINAL SOFT TISSUES: Extensive interstitial change noted in the lung apices, right greater than left. OTHER FINDINGS: None. IMPRESSION: No fracture/ dislocation. Extensive multilevel degenerative disc disease with disc bulge at C3-4 and left parasagittal disc herniation at C4-5. Central spinal stenosis C3-4, C4-5 and C5-6. Multilevel bilateral neural foraminal stenosis. Interstitial changes noted in the lung apices, right greater than left. Pelvis single frontal view X-Ray History: Fall. Comparison: None available. Findings: Limited study secondary to suboptimal positioning and technique. Moderate degenerative changes of the bilateral hip joints with subchondral sclerosis. Hips appears somewhat internally rotated. Fecal retention in the colon. Calcified phleboliths in the pelvis with vascular calcifications. Impression: Limited study. Degenerative changes. If pain persists, consider MRI. CXR History: Fall. Comparison: 03/29/2016 Findings: Diffuse confluent airspace opacifications throughout both lungs suggestive for prominent edema and or infiltrate. Biapical pleural thickening with upper lobe granulomatous changes. Suggestion of bilateral pleural effusions. Cardiomegaly. Prominent ectatic aorta. Degenerative changes in the spine and shoulders. Right-sided venous catheter extending into the mid axillary vein. Impression: Diffuse confluent airspace opacifications throughout both lungs suggestive for prominent edema and or infiltrate. Biapical pleural thickening with upper lobe granulomatous changes. Suggestion of bilateral pleural effusions. Cardiomegaly. Prominent ectatic aorta. Degenerative changes in the spine and shoulders. Right-sided venous catheter extending into the mid axillary vein. Dr. Soto accepts patient to his service. ICU consulted, Dr. Guerrero recommends telemetry floor admission. Family at bedside, has HCP form, states that she does not wish patient to have any invasive procedures, intubation, or CPR, and family is asking about hospice. Disposition - Disposition Disposition: HOSPITALIZED Disposition Time: 12:33 Condition: GUARDED - POA Core Measure Indicators: Code Sepsis, Pneumonia - Clinical Impression Clinical Impression: Pneumonia, Sepsis, Fall - Scribe Statement The provider has reviewed the documentation as recorded by the Dave Funez Provider Attestation: All medical record entries made by the Dave were at my direction and personally dictated by me. I have reviewed the chart and agree that the record accurately reflects my personal performance of the history, physical exam, medical decision making, and the department course for this patient. I have also personally directed, reviewed, and agree with the discharge instructions and disposition.
[2016-09-07 11:05] LABS: BASO # 0.1 K/uL (0.0-0.2); BASO % 0.5 % (0.0-2.0); EOS % 0.1 % (0.0-4.0); HEMATOCRIT 33.5 % (35.0-51.0); LYMPH # 1.1 K/uL (1.0-4.3); LYMPH % 4.7 % (20.0-40.0); MEAN CELL VOLUME 87.7 fL (80.0-94.0); MEAN CORPUSCULAR HEMOGLOBIN 27.3 pg (27.0-31.0); MEAN CORPUSCULAR HGB CONC 31.1 g/dL (33.0-37.0); MEAN PLATELET VOLUME 7.9 fL (7.2-11.7); MONO # 2.8 K/uL (0.0-0.8); MONO % 11.6 % (0.0-10.0); PLATELET COUNT 258 K/uL (130-400); RED CELL DISTRIBUTION WIDTH 14.7 % (11.5-14.5)
[2016-09-07 11:09] LABS: WHITE BLOOD COUNT 24.3 K/uL (4.8-10.8)
[2016-09-07 11:18] LABS: INR 1.6
[2016-09-07 11:29] LABS: CHLORIDE 104 mmol/L (98-107); POTASSIUM 4.1 mmol/L (3.6-5.2); SODIUM 136 mmol/L (132-148)
[2016-09-07 11:31] LABS: EOSINOPHIL 1 % (0-4); GFR AFRICAN-AMERICAN > 60; TOTAL CELLS COUNTED 100
[2016-09-07 11:32] LABS: ALB/GLOB RATIO 0.8 (1.0-2.1); ALKALINE PHOSPHATASE 103 U/L (38-126); ALT/SGPT 17 U/L (21-72); AST/SGOT 27 U/L (17-59); BILIRUBIN,TOTAL 1.6 mg/dL (0.2-1.3); BLOOD UREA NITROGEN 28 mg/dL (9-20); CARBON DIOXIDE 18 mmol/L (22-30); GLUCOSE,RANDOM 283 mg/dL (75-110); NEUTROPHIL 86 % (50-75); TOTAL PROTEIN 7.3 g/dL (6.3-8.3)
[2016-09-07 11:33] LABS: CALCIUM 8.9 mg/dl (8.6-10.4)
--- NOTE | 2016-09-07 12:03 | RAD ---
Chest x-ray single frontal view History: Fall. Comparison: 03/29/2016 Findings: Diffuse confluent airspace opacifications throughout both lungs suggestive for prominent edema and or infiltrate. Biapical pleural thickening with upper lobe granulomatous changes. Suggestion of bilateral pleural effusions. Cardiomegaly. Prominent ectatic aorta. Degenerative changes in the spine and shoulders. Right-sided venous catheter extending into the mid axillary vein. Impression: Diffuse confluent airspace opacifications throughout both lungs suggestive for prominent edema and or infiltrate. Biapical pleural thickening with upper lobe granulomatous changes. Suggestion of bilateral pleural effusions. Cardiomegaly. Prominent ectatic aorta. Degenerative changes in the spine and shoulders. Right-sided venous catheter extending into the mid axillary vein.
--- NOTE | 2016-09-07 12:04 | RAD ---
Pelvis single frontal view History: Fall. Comparison: None available. Findings: Limited study secondary to suboptimal positioning and technique. Moderate degenerative changes of the bilateral hip joints with subchondral sclerosis. Hips appears somewhat internally rotated. Fecal retention in the colon. Calcified phleboliths in the pelvis with vascular calcifications. Impression: Limited study. Degenerative changes. If pain persists, consider MRI.
--- NOTE | 2016-09-07 12:04 | CT ---
PROCEDURE: CT HEAD WITHOUT CONTRAST. HISTORY: fall, head injury COMPARISON: 03/29/2016 TECHNIQUE: Axial computed tomography images were obtained through the head/brain without intravenous contrast. Radiation dose: Total exam DLP = 1692.78 mGy-cm. This CT exam was performed using one or more of the following dose reduction techniques: Automated exposure control, adjustment of the mA and/or kV according to patient size, and/or use of iterative reconstruction technique. FINDINGS: HEMORRHAGE: No intracranial hemorrhage. BRAIN: No mass effect or edema. Moderate diffuse age-appropriate cerebral atrophy. Mild periventricular white matter lucency consistent with age-related microvascular ischemic change. No evidence of acute infarct. VENTRICLES: Mild ventricular dilatation consistent with the degree of surrounding parenchymal atrophy. No evidence of hydrocephalus. CALVARIUM: Unremarkable. PARANASAL SINUSES: Unremarkable as visualized. No significant inflammatory changes. MASTOID AIR CELLS: Unremarkable as visualized. No inflammatory changes. OTHER FINDINGS: None. IMPRESSION: No intracranial hemorrhage. Age-appropriate involutional change.
--- NOTE | 2016-09-07 12:23 | CT ---
PROCEDURE: CT Cervical Spine without contrast HISTORY: Fall COMPARISON: None available. TECHNIQUE: Axial computed tomography images were obtained of the cervical spine without the use of intravenous contrast. Coronal and sagittal reformatted images were created and reviewed. Radiation dose: Total exam DLP = 500.89 mGy-cm. This CT exam was performed using one or more of the following dose reduction techniques: Automated exposure control, adjustment of the mA and/or kV according to patient size, and/or use of iterative reconstruction technique. FINDINGS: VERTEBRAE: The vertebral bodies are maintained in height. Normal vertebral alignment is maintained. The atlantoaxial articulation and odontoid process are intact. There is focal ossification of the nuchal ligament incidentally noted at the C5 and C6 levels. DISCS/SPINAL CANAL/NEURAL FORAMINA: There is severe narrowing of multiple intervertebral disc spaces including C3-4 through C7-T1. There is disc bulge noted at C3-4. Probable focal left parasagittal disc herniation at C4-5. Please note that evaluation of intervertebral disc pathology is limited on the basis of CT examination. There is multilevel bilateral neural foraminal stenosis. There is central spinal stenosis noted the C3-4, C4-5 and C5-6 intervertebral disc space levels. PARASPINAL SOFT TISSUES: Extensive interstitial change noted in the lung apices, right greater than left. OTHER FINDINGS: None. IMPRESSION: No fracture/ dislocation. Extensive multilevel degenerative disc disease with disc bulge at C3-4 and left parasagittal disc herniation at C4-5. Central spinal stenosis C3-4, C4-5 and C5-6. Multilevel bilateral neural foraminal stenosis. Interstitial changes noted in the lung apices, right greater than left.
[2016-09-07 13:26] LABS: VENOUS BLOOD GAS BASE EXCESS -7.7 mmol/L (0.0-2.0); VENOUS BLOOD GAS PCO2 34 mmHg (40-60); VENOUS BLOOD PH 7.32 (7.32-7.43)
[2016-09-07] MEDS ORDERED: Sodium Chloride 0.9% 1,000 ML ONE ×2 (13:29→14:47)
[2016-09-07] MEDS ORDERED: Vancomycin 1 GM 1 GM/250 ML BAG IVPB ONE (13:30)
[2016-09-07 15:48] VITALS: RESP 20
[2016-09-07 16:38] LABS: VENOUS BLOOD GAS BASE EXCESS -6.6 mmol/L (0.0-2.0); VENOUS BLOOD GAS PCO2 34 mmHg (40-60); VENOUS BLOOD PH 7.34 (7.32-7.43)
[2016-09-07 16:59] LABS: RBC URINE 51 /hpf (0-3); URINE BACTERIA RARE (<OCC); URINE BILIRUBIN NEGATIVE (NEGATIVE); URINE BLOOD 2+ (NEGATIVE); URINE COLOR Yellow (YELLOW); URINE GLUCOSE (UA) 1+ mg/dL (Normal); URINE KETONE TRACE mg/dL (NEGATIVE); URINE LEUKOCYTE ESTERASE NEG Leu/uL (Negative); URINE PROTEIN 2+ mg/dL (NEGATIVE); URINE UROBILINOGEN NORMAL mg/dL (0.2-1.0); WBC URINE 3 /hpf (0-5)
--- NOTE | 2016-09-07 18:26 | HP ---
I went to see him and he was having agonal breathing and then he stopped breathing. He is a DNR/DNI as per the 's signature. He . He came from [facility] for a fall. He had a 24,000 white count. It looked like he was septic and he . I just got off the phone with the wif e and she knows. Mingo Soto DO cc: [id number] TT: 09/07/2016 18:25:12 dn 09/07/2016 18:15:12
--- NOTE | 2016-09-07 18:34 | CP.PCM.PRO ---
Pronouncement of Note - Clinical Findings Physical Exam: No Response Verbal/Painful Stimuli, Absent Peripheral Pulses{ Carotid & Femoral}, Absent Heart & Breath Sounds, No Pupillary Light Reflex, No Corneal Reflex, Pupils Fixed & Dilated, Absence of Vital Signs - Pronouncement Time Time of Pronouncement of : 18:20 - Notifications Pronouncement Notifications: Family Notified, Atending Notified Yard Associate Notified: No - Autopsy Autopsy Requested: No - [place] [id number]
--- NOTE | 2016-09-07 18:35 | DS ---
He . I discussed with his . He was a DNR/DNI. He was asystole with agonal breathing . He was septic and he . Mingo Soto DO cc: [id number] TT: 09/07/2016 18:34:45 sharyn
--- NOTE | 2016-09-07 20:35 | CP.PCM.CON ---
Past Patient History - Infectious Disease Hx of Infectious Diseases: None - Past Medical History & Family History Past Medical History?: Yes - Past Social History Smoking Status: Former Smoker - CARDIAC Hx Atrial Fibrillation: Yes Hx Cardia Arrhythmia: Yes (A.FIB) Hx Hypertension: Yes - PULMONARY Hx Pneumonia: Yes (2011) - NEUROLOGICAL Hx Alzheimer's Disease: Yes Hx Dementia: Yes - HEENT Hx HEENT Problems: Yes Hx Cataracts: Yes (BILAT. IOL) - RENAL Hx Chronic Kidney Disease: No - ENDOCRINE/METABOLIC Hx Hypothyroidism: Yes - HEMATOLOGICAL/ONCOLOGICAL Hx Blood Disorders: No - INTEGUMENTARY Hx Dermatological Problems: Yes (BREAKDOWN LEFT SIDE OF FOOT NEAR ANKLE) - MUSCULOSKELETAL/RHEUMATOLOGICAL Hx Musculoskeletal Disorders: No Hx Falls: No - GASTROINTESTINAL Hx Gastrointestinal Disorders: No - GENITOURINARY/GYNECOLOGICAL Hx Genitourinary Disorders: No - PSYCHIATRIC Hx Depression: Yes Hx Substance Use: No - SURGICAL HISTORY Hx Cholecystectomy: Yes Hx Coronary Stent: Yes - ANESTHESIA Hx Anesthesia: Yes Hx Anesthesia Reactions: No Hx Malignant Hyperthermia: No Meds Allergies/Adverse Reactions: Allergies Allergy/AdvReac Type Severity Reaction Status Date / Time No Known Allergies Allergy Verified 08/31/16 14:11 Results - Vital Signs Recent Vital Signs: Last Vital Signs Temp 97.4 F L 09/07/16 15:46 Pulse 85 09/07/16 15:46 Resp 20 09/07/16 15:46 BP 102/54 L 09/07/16 15:46 Pulse Ox 82 L 09/07/16 15:46 - Labs Result Diagrams: 09/07/16 11:01 09/07/16 11:01 Labs: Laboratory Results - last 24 hr 09/07/16 09/07/16 09/07/16 16:05 16:33 17:14 pO2 21 L VBG pH 7.34 VBG pCO2 34 L VBG HCO3 18.0 VBG Total CO2 19.3 L VBG O2 Sat (Calc) 34.7 L VBG Base Excess -6.6 L VBG Potassium 4.3 Sodium 137.0 Chloride 114.0 H Glucose 240 H Lactate 3.6 H POC Glucose (mg/dL) 254 H Venous Blood Potassium 4.3 Urine Color Yellow Urine Clarity Clear Urine pH 5.0 Ur Specific [place] 1.023 Urine Protein 2+ H Urine Glucose (UA) 1+ H Urine Ketones Trace Urine Blood 2+ H Urine Nitrate Negative Urine Bilirubin Negative Urine Urobilinogen Normal Ur Leukocyte Esterase Neg Urine WBC (Auto) 3 Urine RBC (Auto) 51 H Urine Bacteria Rare
[2016-09-07 21:13] VITALS: BP 148/48; PULSE 101; TEMP 98; O2SAT 76
== END 2016-09-07 18:20 | DRG 871 ==
LOC: C.ER 10:34 → C.5T 14:38 → C.6T 15:07 → C.9E 15:11 → C.6T 15:12
PROVIDERS: ADMIT Family Medicine; ATTEND Family Medicine
DX: A41.9 Sepsis, unspecified organism (principal); J18.9 Pneumonia, unspecified organism; I48.91 Unspecified atrial fibrillation; S09.90XA Unspecified injury of head, initial encounter; E11.9 Type 2 diabetes mellitus without complications; I10 Essential (primary) hypertension; I25.10 Atherosclerotic heart disease of native coronary artery without angina pectoris; E03.9 Hypothyroidism, unspecified; M16.0 Bilateral primary osteoarthritis of hip; W05.0XXA Fall from non-moving wheelchair, initial encounter; Z66 Do not resuscitate; G30.9 Alzheimer's disease, unspecified; F02.80 Dementia in other diseases classified elsewhere, unspecified severity, without behavioral disturbance, psychotic disturbance, mood disturbance, and anxiety; Z96.1 Presence of intraocular lens; Y92.129 Unspecified place in nursing home as the place of occurrence of the external cause; Z87.01 Personal history of pneumonia (recurrent); Z87.891 Personal history of nicotine dependence; Z95.5 Presence of coronary angioplasty implant and graft; Z98.42 Cataract extraction status, left eye; Z98.41 Cataract extraction status, right eye; Z79.02 Long term (current) use of antithrombotics/antiplatelets; Z79.4 Long term (current) use of insulin; Z90.49 Acquired absence of other specified parts of digestive tract